=== PATIENT | male | born 1945 | race Two or more races ===

== ENCOUNTER 2019-09-01 15:58 | Inpatient (IN) | payer MEDICARE, MEDICAID ==
[~2019-09-01] VITALS: Ht 175.3 cm; Wt 59.0 kg
[2019-09-01 16:45] VITALS: BP 130/76
[2019-09-01 16:56] LABS: BASOPHILS % (AUTO) 1.2 % (0.0-2.0); EOSINOPHILS % (AUTO) 0.9 % (0.0-3.0); HEMATOCRIT 33.5 % (42.0-52.0); HEMOGLOBIN 11.4 G/DL (14.2-18.0); LYMPHOCYTES % (AUTO) 18.5 % (20.0-45.0); MEAN CORPUSCULAR VOLUME 80 FL (80-99); MONOCYTES % (AUTO) 8.6 % (1.0-10.0); NEUTROPHILS % (AUTO) 70.7 % (45.0-75.0); PLATELET COUNT 351 K/UL (150-450); RED BLOOD COUNT 4.19 M/UL (4.70-6.10); RED CELL DISTRIBUTION WIDTH 11.5 % (11.6-14.8); WHITE BLOOD COUNT 6.5 K/UL (4.8-10.8)
[2019-09-01] MEDS ORDERED: Insulin Human Regular 100units/ml 3ml IV ONE (17:15)
[2019-09-01 17:23] LABS: ALANINE AMINOTRANSFERASE 18 U/L (12-78); ALBUMIN/GLOBULIN RATIO 0.7 (1.0-2.7); ALKALINE PHOSPHATASE 147 U/L (46-116); ANION GAP 9 mmol/L (5-15); ASPARTATE AMINO TRANSFERASE 11 U/L (15-37); BILIRUBIN,TOTAL 0.3 MG/DL (0.2-1.0); BLOOD UREA NITROGEN 13 mg/dL (7-18); CALCIUM 8.7 MG/DL (8.5-10.1); CARBON DIOXIDE 29 MMOL/L (21-32); CHLORIDE 97 MMOL/L (98-107); CKMB 0.9 NG/ML (0.0-3.6); CREATINE KINASE 30 U/L (26-308); POTASSIUM 3.9 MMOL/L (3.5-5.1); SODIUM 135 MMOL/L (136-145)
[2019-09-01] MEDS ORDERED: PLAVIX75 MG ORAL (17:56)
[2019-09-01] MEDS ORDERED: NOVOLIN N100 UNIT/1 SQ (17:56)
[2019-09-01] MEDS ORDERED: COLACE100 MG ORAL (17:56)
[2019-09-01] MEDS ORDERED: FOLIC ACID1 MG ORAL (17:56)
[2019-09-01] MEDS ORDERED: MULTI-VITAMIN1 EACH PO (17:56)
[2019-09-01] MEDS ORDERED: ASPIR 8181 MG ORAL (17:56)
[2019-09-01] MEDS ORDERED: LIPITOR40 MG ORAL (17:56)
[2019-09-01 18:08] LABS: APPEARANCE,URINE CLOUDY; BILIRUBIN, URINE NEGATIVE (NEGATIVE); COLOR,URINE PALE YELLOW; GLUCOSE, URINE (UA) NEGATIVE (NEGATIVE); KETONES,URINE 4+ (NEGATIVE); LEUKOCYTE ESTERASE ,URINE 2+ (NEGATIVE); NITRITE,URINE NEGATIVE (NEGATIVE); PH,URINE 6 (4.5-8.0); PROTEIN,URINE 1+ (NEGATIVE); UROBILINOGEN,URINE NORMAL MG/DL (0.0-1.0)
--- NOTE | 2019-09-01 18:19 | Emergency Room Report ---
History of Present Illness General Chief Complaint: General Complaint Source: Patient Present Illness HPI Patient was brought in by major gifts director with reports of high glucose readings patient himself has some difficulty providing full history The history of present illness is limited secondary to that there was no reports of vomiting or diarrhea Unknown regarding fevers patient himself Upon arrival reports that he is hungry however denies any chest pain denies any neck pain Patient does appear to reside at a boarding care facility There was no reports of any other recent travel or trauma Allergies: Coded Allergies: No Known Allergies (Unverified , 09/01/19) Patient History Limited by: medical condition Past Medical History: see triage record Reviewed Nursing Documentation: PMH: Agreed; PSxH: Agreed Nursing Documentation-PMH Past Medical History: No History, Except For Hx Diabetes: Yes Review of Systems All Other Systems: limited - Other than the ones mentioned in the history of present illness all others are reviewed however they do stay limited due to the patient's mental status Physical Exam Vital Signs Date Time Temp Pulse Resp B/P (MAP) Pulse Ox O2 Delivery O2 Flow Rate FiO2 09/01/19 16:06 98.6 105 16 92/66 (75) 95 09/01/19 16:47 Room Air Sp02 EP Interpretation: reviewed, normal General Appearance: well appearing, no apparent distress Head: normocephalic, atraumatic Eyes: bilateral eye PERRL, bilateral eye EOMI ENT: dry mucus membranes Neck: supple Respiratory: lungs clear, no respiratory distress, no retraction Cardiovascular #1: regular rate, rhythm Gastrointestinal: non tender, soft Musculoskeletal: normal inspection Neurologic: alert, responsive Skin: no rash Lymphatic: no adenopathy Medical Decision Making Diagnostic Impression: Primary Impression: Hyperglycemia Additional Impressions: Dehydration UTI (urinary tract infection) ER Course Given the above history exam and presentation multiple differentials are in consideration Including but not limited to infectious, dehydration, medication reaction Patient has extensive blood work initiated Glucose level is elevated over 500 however there does not appear to be signs of acute acidosis Patient receiving further hydration Urine sample also showing evidence of UTI and antibiotics initiated And requires inpatient care Labs Test 09/01/19 16:25 09/01/19 17:36 White Blood Count 6.5 K/UL (4.8-10.8) Red Blood Count 4.19 M/UL (4.70-6.10) Hemoglobin 11.4 G/DL (14.2-18.0) Hematocrit 33.5 % (42.0-52.0) Mean Corpuscular Volume 80 FL (80-99) Mean Corpuscular Hemoglobin 27.3 PG (27.0-31.0) Mean Corpuscular Hemoglobin Concent 34.1 G/DL (32.0-36.0) Red Cell Distribution Width 11.5 % (11.6-14.8) Platelet Count 351 K/UL (150-450) Mean Platelet Volume 5.4 FL (6.5-10.1) Neutrophils (%) (Auto) 70.7 % (45.0-75.0) Lymphocytes (%) (Auto) 18.5 % (20.0-45.0) Monocytes (%) (Auto) 8.6 % (1.0-10.0) Eosinophils (%) (Auto) 0.9 % (0.0-3.0) Basophils (%) (Auto) 1.2 % (0.0-2.0) Sodium Level 135 MMOL/L (136-145) Potassium Level 3.9 MMOL/L (3.5-5.1) Chloride Level 97 MMOL/L (98-107) Carbon Dioxide Level 29 MMOL/L (21-32) Anion Gap 9 mmol/L (5-15) Blood Urea Nitrogen 13 mg/dL (7-18) Creatinine 1.0 MG/DL (0.55-1.30) Estimat Glomerular Filtration Rate mL/min (>60) Glucose Level 541 MG/DL (74-106) Lactic Acid Level 2.00 mmol/L (0.4-2.0) Calcium Level 8.7 MG/DL (8.5-10.1) Total Bilirubin 0.3 MG/DL (0.2-1.0) Aspartate Amino Transf (AST/SGOT) 11 U/L (15-37) Alanine Aminotransferase (ALT/SGPT) 18 U/L (12-78) Alkaline Phosphatase 147 U/L (46-116) Total Creatine Kinase 30 U/L (26-308) Creatine Kinase MB 0.9 NG/ML (0.0-3.6) Creatine Kinase MB Relative Index 3.0 Troponin I 0.009 ng/mL (0.000-0.056) Pro-B-Type Natriuretic Peptide 339 pg/mL (0-125) Total Protein 7.3 G/DL (6.4-8.2) Albumin 3.0 G/DL (3.4-5.0) Globulin 4.3 g/dL Albumin/Globulin Ratio 0.7 (1.0-2.7) Lipase 88 U/L (73-393) Urine Color Pale yellow Urine Appearance Cloudy Urine pH 6 (4.5-8.0) Urine Specific [place] 1.015 (1.005-1.035) Urine Protein 1+ (NEGATIVE) Urine Glucose (UA) Negative (NEGATIVE) Urine Ketones 4+ (NEGATIVE) Urine Blood 5+ (NEGATIVE) Urine Nitrite Negative (NEGATIVE) Urine Bilirubin Negative (NEGATIVE) Urine Urobilinogen Normal MG/DL (0.0-1.0) Urine Leukocyte Esterase 2+ (NEGATIVE) Urine RBC 20-30 /HPF (0 - 0) Urine WBC Tntc /HPF (0 - 0) Urine Squamous Epithelial Cells Occasional /LPF Urine Bacteria Many /HPF (NONE) EKG Diagnostic Results Rate: normal Rhythm: NSR ST Segments: no acute changes Rhythm Strip Diag. Results EP Interpretation: yes Rate: 80 Rhythm: NSR, no PVC's, no ectopy Chest X-Ray Diagnostic Results Chest X-Ray Diagnostic Results : Chest X-Ray Ordered: Yes # of Views/Limited/Complete: 1 View Indication: Chest Pain EP Interpretation: Yes Interpretation: no consolidation, no effusion, no pneumothorax Impression: No acute disease Electronically Signed by: Jennifer Rico DO Last Vital Signs Date Time Temp Pulse Resp B/P (MAP) Pulse Ox O2 Delivery O2 Flow Rate FiO2 09/01/19 16:47 86 21 Room Air 09/01/19 16:45 98.6 130/76 100 Status: improved Disposition: ADMITTED INPATIENT Condition: Serious Referrals: NOT CHOSEN IPA/,REFERRING (PCP) Jennifer Rico DO Sep 01, 2019 18:19
[2019-09-01] MEDS ORDERED: cefTRIAXone 1 GM in D5W 55 ML IVPB ONE (18:30)
[2019-09-01 19:10] VITALS: BP 128/75
[2019-09-01 20:00] VITALS: BP 144/81
[2019-09-01 20:15] VITALS: BP 131/77
[2019-09-01] MEDS: Atorvastatin 80mg tab ORAL SCH (21:38)
[2019-09-01] MEDS: Enoxaparin 40mg Inj SUBQ SCH (21:38)
[2019-09-01] MEDS: Levemir Flexpen SUBQ SCH (21:39)
[2019-09-01] MEDS: NovoLOG Insulin Flexpen SUBQ SCH (21:40)
--- NOTE | 2019-09-01 22:00 | History and Physical Report ---
DATE OF ADMISSION: 09/01/2019 REASON FOR ADMISSION: 1. Hyperglycemia. 2. UTI. HISTORY OF PRESENT ILLNESS: The patient is a Armenian-speaking 74-year-old gentleman who was brought in by bioinformatics technician due to difficult to control high glucose readings. Noted to have an underlying urinary tract infection. The patient denies any current chest pain, nausea, vomiting, or diarrhea. No shortness of breath. He resides at a boarding care facility. No other recent history of falls or trauma to note. PAST MEDICAL HISTORY: 1. Diabetes mellitus. 2. Hyperlipidemia. 3. Coronary artery disease. PAST SURGICAL HISTORY: Noncontributory. ALLERGIES: No known drug allergies. FAMILY HISTORY: Positive for diabetes. REVIEW OF SYSTEMS: NEUROLOGIC: The patient denies headache, change in vision, syncope, or presyncopal episodes. CARDIOVASCULAR: No current chest pain, palpitations, or angina. PULMONARY: No difficulty breathing, productive cough, or sputum. GASTROINTESTINAL/GENITOURINARY: No change in urinary or bowel habits. No nausea, vomiting, or diarrhea. ENDOCRINE: No night sweats, fevers, or chills. MUSCULOSKELETAL: The patient is feeling tired, weak, and fatigued. PHYSICAL EXAMINATION: VITAL SIGNS: Blood pressure 131/77, respiratory rate 19, pulse 80, and temperature 98.9. 100% oxygen saturation on room air. GENERAL: The patient is awake and alert, not in distress. HEENT: Extraocular muscles intact. No lymphadenopathy noted. CARDIOVASCULAR: S1, S2. No rubs or gallops. PULMONARY: Clear to auscultation bilaterally. No rales, rhonchi or wheezes. ABDOMEN: Nondistended and nontender. EXTREMITIES: No edema noted. LABORATORY DATA: Labs dated September 01, 2019, [id number]-[id number]-count rbc's and bacteria. Sodium 135, potassium 3.9, glucose 541, creatinine 1. Hemoglobin 11.4, white cell count 6.5, and platelet count 351,000. ASSESSMENT AND PLAN: 1. Urinary tract infection. At this time, we will continue Rocephin. 2. Hyperglycemia, diabetes out of control. We will re-initiate Levemir along with insulin sliding scale and Accu-Cheks with a low-carbohydrate diet. 3. Dehydration. We will continue aggressive hydration. 4. Hyperlipidemia. The patient is on Lipitor. 5. DVT prophylaxis with Lovenox. 6. GI prophylaxis with famotidine. Walt Laws MD DR: PROSPER JOB#: [id number] CC:
[2019-09-02] VITALS: BP 121/66
[2019-09-02 04:00] VITALS: BP 103/63
[2019-09-02] MEDS: NovoLOG Insulin Flexpen SUBQ SCH ×4 (05:49→21:00)
[2019-09-02 07:14] LABS: BASOPHILS % (AUTO) 1.4 % (0.0-2.0); EOSINOPHILS % (AUTO) 1.6 % (0.0-3.0); HEMATOCRIT 31.1 % (42.0-52.0); HEMOGLOBIN 10.7 G/DL (14.2-18.0); MEAN CORPUSCULAR VOLUME 79 FL (80-99); MONOCYTES % (AUTO) 11.2 % (1.0-10.0); NEUTROPHILS % (AUTO) 60.8 % (45.0-75.0); PLATELET COUNT 353 K/UL (150-450); RED BLOOD COUNT 3.95 M/UL (4.70-6.10); RED CELL DISTRIBUTION WIDTH 11.2 % (11.6-14.8)
[2019-09-02 07:33] LABS: ANION GAP 8 mmol/L (5-15); BLOOD UREA NITROGEN 15 mg/dL (7-18); CALCIUM 8.3 MG/DL (8.5-10.1); CARBON DIOXIDE 29 MMOL/L (21-32); CHLORIDE 105 MMOL/L (98-107); CREATININE 0.8 MG/DL (0.55-1.30); POTASSIUM 3.4 MMOL/L (3.5-5.1); SODIUM 141 MMOL/L (136-145)
[2019-09-02 08:00] VITALS: BP 122/66
[2019-09-02] MEDS: Aspirin EC 81mg tab ORAL SCH (09:25)
--- NOTE | 2019-09-02 09:55 | Nephrology Progress Note ---
Assessment/Plan Assessment/Plan: A/P 1) Hyperglycemia- resolved - treat UTI - continue insulin and accuchecks 2) UTI- rocephin 3) LLE toe wounds - per wound care and gen surgery 4) Dehydration- continue IVFs 5) DVT prophylaxsis with lovenox Disposition- PT eval andf HH ordered - anticipate DC by Subjective Date patient seen: Sep 02, 2019 Time patient seen: 09:53 ROS Limited/Unobtainable: No Allergies: Coded Allergies: No Known Allergies (Unverified , 09/01/19) Subjective Patient feeling better. In no overt distress Objective Last 24 Hour Vital Signs Date Time Temp Pulse Resp B/P (MAP) Pulse Ox O2 Delivery O2 Flow Rate FiO2 09/02/19 09:30 Room Air 09/02/19 08:00 98.8 90 18 122/66 (84) 100 09/02/19 04:00 98.1 87 18 103/63 (76) 98 09/02/19 00:48 Room Air 09/02/19 00:00 97.9 92 18 121/66 (84) 96 09/01/19 20:15 98.9 80 19 131/77 100 Room Air 09/01/19 20:15 98.9 80 19 131/77 100 Room Air 09/01/19 20:00 97.5 83 18 144/81 (102) 98 09/01/19 19:10 98.7 81 15 128/75 99 Room Air 09/01/19 16:47 86 21 Room Air 09/01/19 16:45 98.6 86 21 130/76 100 09/01/19 16:06 98.6 105 16 92/66 (75) 95 Intake and Output 09/01/19 09/02/19 19:00 07:00 Intake Total 800 ml Output Total 300 ml Balance 500 ml Intake IV Total 800 ml Output Urine Total 300 ml Laboratory Tests 09/01/19 16:25: White Blood Count 6.5, Red Blood Count 4.19L, Hemoglobin 11.4L, Hematocrit 33.5L , Mean Corpuscular Volume 80, Mean Corpuscular Hemoglobin 27.3, Mean Corpuscular Hemoglobin Concent 34.1, Red Cell Distribution Width 11.5L, Platelet Count 351, Mean Platelet Volume 5.4L, Neutrophils (%) (Auto) 70.7, Lymphocytes (%) (Auto) 18.5L, Monocytes (%) (Auto) 8.6, Eosinophils (%) (Auto) 0.9, Basophils (%) (Auto) 1.2, Sodium Level 135L, Potassium Level 3.9, Chloride Level 97L, Carbon Dioxide Level 29, Anion Gap 9, Blood Urea Nitrogen 13, Creatinine 1.0, Estimat Glomerular Filtration Rate , Glucose Level 541*H, Lactic Acid Level 2.00, Calcium Level 8.7, Total Bilirubin 0.3, Aspartate Amino Transf (AST/SGOT) 11L, Alanine Aminotransferase (ALT/SGPT) 18, Alkaline Phosphatase 147H, Total Creatine Kinase 30, Creatine Kinase MB 0.9, Creatine Kinase MB Relative Index 3.0, Troponin I 0.009, Pro-B-Type Natriuretic Peptide 339H, Total Protein 7.3, Albumin 3.0L, Globulin 4.3, Albumin/Globulin Ratio 0.7L , Lipase 88 09/01/19 17:36: Urine Color Pale yellow, Urine Appearance Cloudy, Urine pH 6, Urine Specific [place] 1.015, Urine Protein 1+H, Urine Glucose (UA) Negative, Urine Ketones 4+H , Urine Blood 5+H, Urine Nitrite Negative, Urine Bilirubin Negative, Urine Urobilinogen Normal, Urine Leukocyte Esterase 2+H, Urine RBC 20-30H, Urine WBC TntcH, Urine Squamous Epithelial Cells Occasional, Urine Bacteria ManyH 09/02/19 05:30: White Blood Count 6.0, Red Blood Count 3.95L, Hemoglobin 10.7L, Hematocrit 31.1L , Mean Corpuscular Volume 79L, Mean Corpuscular Hemoglobin 27.1, Mean Corpuscular Hemoglobin Concent 34.4, Red Cell Distribution Width 11.2L, Platelet Count 353, Mean Platelet Volume 5.4L, Neutrophils (%) (Auto) 60.8, Lymphocytes (%) (Auto) 25.0, Monocytes (%) (Auto) 11.2H, Eosinophils (%) (Auto) 1.6, Basophils (%) (Auto) 1.4, Sodium Level 141, Potassium Level 3.4L, Chloride Level 105, Carbon Dioxide Level 29, Anion Gap 8, Blood Urea Nitrogen 15, Creatinine 0.8, Estimat Glomerular Filtration Rate , Glucose Level 100#, Calcium Level 8.3L Height (Feet): 5 Height (Inches): 9.00 Weight (Pounds): 130 General Appearance: no apparent distress, alert EENT: normal ENT inspection Neck: normal alignment, supple Cardiovascular: normal rate, regular rhythm Respiratory/Chest: lungs clear, normal breath sounds Abdomen: non tender, soft Edema: no edema noted Arm (L), no edema noted Arm (R), no edema noted Leg (L), no edema noted Leg (R), no edema noted Pedal (L), no edema noted Pedal (R), no edema noted Generalized Walt Laws MD Sep 02, 2019 09:55
--- NOTE | 2019-09-02 11:47 | Diagnostic Imaging Report ---
Indication: Chest pain Technique: One view of the chest Comparison: none Findings: The lungs pleural spaces are clear. The heart size is normal. The aorta is calcified Impression: No acute process
[2019-09-02 12:00] VITALS: BP 146/78
--- NOTE | 2019-09-02 12:35 | Cardiology Report ---
APPROVED REPORT EKG Measurement Heart [id number] Normal sinus rhythm Low voltage QRS Borderline ECG
--- NOTE | 2019-09-02 12:37 | Consultation ---
History of Present Illness General Date patient seen: Sep 02, 2019 Reason for Hospitalization: General Complaint Present Illness HPI 74M with long standing history of DM with prior bilateral ray amputation(s) presented with abnormal labs, non compliance, hyperglycemia, infected left foot. Surgery called to evaluate and assist with care. patient seen, chart reviewed, patient examined. no n/v/f/c. labs reviewed, images noted. patient responsive but refusing insulin and meds stating they may be causing gangrene of feet. poor historian. hx obtained from EMR and PCP Allergies: Coded Allergies: No Known Allergies (Unverified , 09/01/19) Medication History Scheduled Aspirin* (Aspir 81*), 81 MG ORAL DAILY, (Reported) Atorvastatin Calcium* (Lipitor*), 40 MG ORAL BEDTIME, (Reported) Clopidogrel Bisulfate* (Plavix*), 75 MG ORAL DAILY, (Reported) Docusate Sodium* (Colace*), 100 MG ORAL DAILY, (Reported) Folic Acid* (Folic Acid*), 1 MG ORAL DAILY, (Reported) Nph, Human Insulin Isophane* (Novolin N*), 0 SQ BEFORE MEALS AND HS, (Reported) Miscellaneous Medications Multivitamin (Multi-Vitamin Daily), 1 EACH PO, (Reported) Patient History Limited by: medical condition, other History Provided By: Patient, Medical Record, Caregiver, PMD Healthcare decision maker Resuscitation status Full Code Advanced Directive on File No Past Medical/Surgical History Past Medical/Surgical History: (1) Cellulitis of left foot (2) Gangrene of toe of left foot (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 (4) Hyperglycemia (5) UTI (urinary tract infection) (6) Dehydration (7) Wound abscess Review of Systems Review of Symptoms General ROS: no weight loss or fever Psychological ROS: no depression or mood changes, no memory loss Ophthalmic ROS: no visual changes or eye irritation ENT ROS: no nasal congestion, hearing loss, dizziness Allergy and Immunology ROS: no allergic symptoms or urticaria Hematological and Lymphatic ROS: no swollen glands, unusual bleeding or bruising Endocrine ROS: no polyuria, polydipsia, weight changes, temperature intolerance Respiratory ROS: no cough, shortness of breath, or wheezing Cardiovascular ROS: no chest pain or dyspnea on exertion Gastrointestinal ROS: denies abdominal pain, bright red blood in stool. Musculoskeletal ROS: no myalgias or arthralgias Neurological ROS: no TIA or stroke symptoms Dermatological ROS: no new or changing skin lesions, rashes or pruritis Physical Exam Physical Exam General appearance: alert, cooperative, no distress, appears stated age Head: Normocephalic, without obvious abnormality, atraumatic Eyes: conjunctivae/corneas clear. PERRL, EOM's intact. Fundi benign Throat: Lips, mucosa, and tongue normal. Teeth and gums normal Neck: supple, symmetrical, trachea midline, no adenopathy, thyroid: not enlarged, symmetric, no tenderness/mass/nodules, no carotid bruit and no JVD Lungs: clear to auscultation bilaterally Heart: regular rate and rhythm, S1, S2 normal, no murmur, click, rub or gallop Abdomen: soft, non-tender. Bowel sounds normal. No masses, no organomegaly Extremities: extremities with prior amputation. left 2/3rd ray with necrosis and infection Pulses: 2+ and symmetric Skin: Skin color, texture, turgor normal. No rashes or lesions Neurologic: Grossly normal Last 24 Hour Vital Signs Date Time Temp Pulse Resp B/P (MAP) Pulse Ox O2 Delivery O2 Flow Rate FiO2 09/02/19 09:30 Room Air 09/02/19 08:00 98.8 90 18 122/66 (84) 100 09/02/19 04:00 98.1 87 18 103/63 (76) 98 09/02/19 00:48 Room Air 09/02/19 00:00 97.9 92 18 121/66 (84) 96 09/01/19 20:15 98.9 80 19 131/77 100 Room Air 09/01/19 20:15 98.9 80 19 131/77 100 Room Air 09/01/19 20:00 97.5 83 18 144/81 (102) 98 09/01/19 19:10 98.7 81 15 128/75 99 Room Air 09/01/19 16:47 86 21 Room Air 09/01/19 16:45 98.6 86 21 130/76 100 09/01/19 16:06 98.6 105 16 92/66 (75) 95 Intake and Output 09/01/19 09/02/19 19:00 07:00 Intake Total 800 ml Output Total 300 ml Balance 500 ml Intake IV Total 800 ml Output Urine Total 300 ml Laboratory Tests Test 09/01/19 16:25 09/01/19 17:36 09/02/19 05:30 White Blood Count 6.5 K/UL (4.8-10.8) 6.0 K/UL (4.8-10.8) Red Blood Count 4.19 M/UL (4.70-6.10) L 3.95 M/UL (4.70-6.10) L Hemoglobin 11.4 G/DL (14.2-18.0) L 10.7 G/DL (14.2-18.0) L Hematocrit 33.5 % (42.0-52.0) L 31.1 % (42.0-52.0) L Mean Corpuscular Volume 80 FL (80-99) 79 FL (80-99) L Mean Corpuscular Hemoglobin 27.3 PG (27.0-31.0) 27.1 PG (27.0-31.0) Mean Corpuscular Hemoglobin Concent 34.1 G/DL (32.0-36.0) 34.4 G/DL (32.0-36.0) Red Cell Distribution Width 11.5 % (11.6-14.8) L 11.2 % (11.6-14.8) L Platelet Count 351 K/UL (150-450) 353 K/UL (150-450) Mean Platelet Volume 5.4 FL (6.5-10.1) L 5.4 FL (6.5-10.1) L Neutrophils (%) (Auto) 70.7 % (45.0-75.0) 60.8 % (45.0-75.0) Lymphocytes (%) (Auto) 18.5 % (20.0-45.0) L 25.0 % (20.0-45.0) Monocytes (%) (Auto) 8.6 % (1.0-10.0) 11.2 % (1.0-10.0) H Eosinophils (%) (Auto) 0.9 % (0.0-3.0) 1.6 % (0.0-3.0) Basophils (%) (Auto) 1.2 % (0.0-2.0) 1.4 % (0.0-2.0) Sodium Level 135 MMOL/L (136-145) L 141 MMOL/L (136-145) Potassium Level 3.9 MMOL/L (3.5-5.1) 3.4 MMOL/L (3.5-5.1) L Chloride Level 97 MMOL/L (98-107) L 105 MMOL/L (98-107) Carbon Dioxide Level 29 MMOL/L (21-32) 29 MMOL/L (21-32) Anion Gap 9 mmol/L (5-15) 8 mmol/L (5-15) Blood Urea Nitrogen 13 mg/dL (7-18) 15 mg/dL (7-18) Creatinine 1.0 MG/DL (0.55-1.30) 0.8 MG/DL (0.55-1.30) Estimat Glomerular Filtration Rate mL/min (>60) mL/min (>60) Glucose Level 541 MG/DL (74-106) *H 100 MG/DL (74-106) # Lactic Acid Level 2.00 mmol/L (0.4-2.0) Calcium Level 8.7 MG/DL (8.5-10.1) 8.3 MG/DL (8.5-10.1) L Total Bilirubin 0.3 MG/DL (0.2-1.0) Aspartate Amino Transf (AST/SGOT) 11 U/L (15-37) L Alanine Aminotransferase (ALT/SGPT) 18 U/L (12-78) Alkaline Phosphatase 147 U/L (46-116) H Total Creatine Kinase 30 U/L (26-308) Creatine Kinase MB 0.9 NG/ML (0.0-3.6) Creatine Kinase MB Relative Index 3.0 Troponin I 0.009 ng/mL (0.000-0.056) Pro-B-Type Natriuretic Peptide 339 pg/mL (0-125) H Total Protein 7.3 G/DL (6.4-8.2) Albumin 3.0 G/DL (3.4-5.0) L Globulin 4.3 g/dL Albumin/Globulin Ratio 0.7 (1.0-2.7) L Lipase 88 U/L (73-393) Urine Color Pale yellow Urine Appearance Cloudy Urine pH 6 (4.5-8.0) Urine Specific [place] 1.015 (1.005-1.035) Urine Protein 1+ (NEGATIVE) H Urine Glucose (UA) Negative (NEGATIVE) Urine Ketones 4+ (NEGATIVE) H Urine Blood 5+ (NEGATIVE) H Urine Nitrite Negative (NEGATIVE) Urine Bilirubin Negative (NEGATIVE) Urine Urobilinogen Normal MG/DL (0.0-1.0) Urine Leukocyte Esterase 2+ (NEGATIVE) H Urine RBC 20-30 /HPF (0 - 0) H Urine WBC Tntc /HPF (0 - 0) H Urine Squamous Epithelial Cells Occasional /LPF Urine Bacteria Many /HPF (NONE) H Microbiology Date/Time Source Procedure Growth Status 09/01/19 16:35 Blood Blood Culture - Preliminary Resulted 09/01/19 17:36 Urine,Clean Catch Urine Culture - Preliminary Resulted 09/01/19 17:45 Rectum Received Height (Feet): 5 Height (Inches): 9.00 Weight (Pounds): 130 Medications Current Medications Medications (Trade) Dose Ordered Sig/Indigo Route PRN Reason Start Time Stop Time Status Last Admin Dose Admin Acetaminophen (Tylenol) 650 mg Q4H PRN ORAL Mild Pain (Pain Scale 1-3) 09/01/19 17:45 10/01/19 17:44 Aspirin (Ecotrin) 81 mg DAILY ORAL 09/02/19 09:00 10/02/19 08:59 09/02/19 09:25 Atorvastatin Calcium (Lipitor) 40 mg BEDTIME ORAL 09/01/19 21:00 10/01/19 20:59 09/01/19 21:38 Ceftriaxone Sodium 1 gm/ Dextrose 55 ml @ 110 mls/hr Q24H IVPB 09/02/19 18:30 09/09/19 18:29 Clopidogrel Bisulfate (Plavix) 75 mg DAILY ORAL 09/02/19 09:00 10/02/19 08:59 09/02/19 09:26 Dextrose (Dextrose 50%) 25 ml Q30M PRN IV Hypoglycemia 09/01/19 18:00 10/01/19 17:59 Dextrose (Dextrose 50%) 50 ml Q30M PRN IV Hypoglycemia 09/01/19 18:00 10/01/19 17:59 Enoxaparin Sodium (Lovenox) 40 mg Q24H SUBQ 09/01/19 20:00 10/01/19 19:59 09/01/19 21:38 Famotidine (Pepcid) 40 mg DAILY ORAL 09/02/19 09:00 10/02/19 08:59 09/02/19 09:26 Insulin Aspart (NovoLOG) BEFORE MEALS AND HS SUBQ 09/01/19 21:00 10/01/19 20:59 09/01/19 21:40 Insulin Detemir (Levemir) 12 units Q24H SUBQ 09/01/19 21:00 10/01/19 20:59 09/01/19 21:39 Metformin HCl (Glucophage) 850 mg TIAC ORAL 09/02/19 06:30 10/02/19 06:29 09/02/19 05:52 Ondansetron HCl (Zofran) 4 mg Q6H PRN IVP Nausea & Vomiting 09/01/19 17:45 10/01/19 17:44 Sodium Chloride 1,000 ml @ 100 mls/hr Q10H IV 09/01/19 18:00 10/01/19 17:59 09/02/19 04:00 Assessment/Plan Problem List: (1) Wound abscess SNOMED: 446109985 (2) Cellulitis of left foot Assessment & Plan: 74M hx DM non compliance prior ray amputations now with left 2nd and 3rd ray infection gangrene, exposed bone labs noted on ABX good DP pulse b/l Podiatry eval as may need amputation local wound care Abx as per ID will follow with recs. 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
--- NOTE | 2019-09-02 13:27 | Consultation ---
Consult Note Assessment/Plan A/ 1) Cellulitis left 2nd toe 2) Gangrene left 2nd toe 3) DM foot ulcer 4) DM with neuropathy 5) Uncontrolled DM 6) Noncompliant 7) Healed toe amps left hallux and right 1st and 2nd toes P/ 1) Nursing states that patient has been noncompliant with medications 2) Discussed with patient in portuguese the necessity for amputation and possible spread of infection imposing further risk to limb. Patient states that the toe feels fine and he is not sure if he wants amputation. 3) Wound care orders placed 4) Consent ordered placed. If patient is amenable, will proceed with toe amputation 5) Will follow Thank you. Dc Manzo DPM Sep 02, 2019 13:26
[2019-09-02] MEDS ORDERED: Vancomycin 1.25gm/NS Premix 275 ML IVPB SCH (14:45)
--- NOTE | 2019-09-02 14:46 | Diagnostic Imaging Report ---
Indication: Left foot pain Technique: 3 views left foot Comparison: none Findings: The patient is status post first toe amputation at the level of the midshaft proximal phalanx. There is marked soft tissue swelling of the second digit. There is evidence of soft tissue erosion of the distal second digit. The underlying bone of the distal phalanx is difficult to assess but erosion is not completely excludable. There is rarefaction of the fourth and fifth distal phalanges, not well-demonstrated no acute fractures. No dislocations. There is hammertoe deformity of the second through fifth digits. On the oblique view, there is evidence of a minimally displaced distal fibular fracture. Impression: Suspect distal fibular fracture, acuity indeterminate. Recommend dedicated ankle radiograph Soft tissue swelling of the second digit with evidence of distal soft tissue erosion. Distal aspects of the second, fourth, and fifth distal phalanges not well-demonstrated. Recommend MRI for better characterization if there is clinical suspicion of osteomyelitis.
--- NOTE | 2019-09-02 14:55 | Consultation ---
Consult Note Consult Note HPI: 74yo gentleman with PMH below brought in by quill skinner for hyperglycemia. Pt states that he felt fine and they brought him to the hospital because his blood pressure and sugar were high. Denies fever, chills, sweats, cough, sob, chest pain, sob, abdominal pain, dysuria, hematuria, diarrhea. He does report pain "a little" and "sometimes" in his feet. Per nurse, pt is refusing potassium and insulin. Pt states that he likes having his sugars high because he feels better. ROS: All ten point ROS negative except for what is above. PMH: Dyslipidemia DM LLE wound Meds: reviewed NKDA SHx: board and care FHx: DM VS: reviewed Gen: NAD HEENT: anicteric sclera CV: RRR. no murmurs Resp: RRR. Soft. no TTP. no suprapubic pain Back: no flank pain Neuro: Alert. Interactive. Appropriate Psych: nonlabile. Ext: b/l feet was just wrapped Labs: reviewed Assessment: Afebrile No leukocytosis Hyperglycemia possibly 2/2 infection Likely UTI does not appear to have come in with fontenot per charting UA WBC TNTC UCx: P L 2nd toe cellulitis/gangrene possible amputation Bacteremia? contaminant? possibly real given foot wound 09/01 BCx: GPC cluster Unlikely PNA CXR negative Plan: continue Ceftriaxone and vancomycin #2 Add flagyl 500mg PO q8H CRP ESR f/u GPC from blood f/u UCx f/u MRSA screen repeat bcx Thank you for this consult. [facility] will continue to follow the patient with you. Erick Chirinos MD Sep 02, 2019 14:55
[2019-09-02 16:00] VITALS: BP 130/80
--- NOTE | 2019-09-02 16:30 | Consultation ---
DATE OF CONSULTATION: 09/02/2019 CONSULTING PHYSICIAN: Dc Manzo D.P.M. REQUESTING PHYSICIAN: REASON FOR CONSULTATION: Infected left second toe gangrenous and presence of diabetes mellitus. HISTORY OF PRESENT ILLNESS: The patient is a 74-year-old male who was admitted to [facility] yesterday for hyperglycemia and left foot infection. The patient states that he is unaware how long he has had the issue with the left second toe. He states that he feels no abnormality in the foot and has no pedal complaints. PAST MEDICAL HISTORY: Significant for diabetes mellitus, hyperlipidemia, and coronary artery disease. PAST SURGICAL HISTORY: Unknown. ALLERGIES: No known drug allergies. MEDICATIONS: Per MAR and include ceftriaxone, Plavix, Ecotrin, Lovenox. SOCIAL HISTORY: Noncontributory. FAMILY HISTORY: Noncontributory. REVIEW OF SYSTEMS: The patient was uncooperative with review of systems. PHYSICAL EXAMINATION: VITAL SIGNS: Temperature is 98.8, pulse 90, respirations 18, blood pressure 122/66, saturating 100% on room air. LOWER EXTREMITY PHYSICAL EXAMINATION: Vascular, palpable pedal pulses noted bilaterally. Feet are equally warm. There is no edema or cyanosis noted in the feet. There is edema noted in the left second toe. DERMATOLOGICAL: There is necrosis noted on the distal aspect of the left second toe with necrosis exposing full-thickness wound underneath with bone exposed. No malodor is noted. Mild serous drainage noted from the site. Periwound erythema is noted. No pain upon palpation of the area. He has healed amputation of the left first toe and healed amputations of the right first and second toes. No other wounds are noted. NEUROLOGICAL: Protective threshold is absent. MUSCULOSKELETAL: Toe amputations noted above. The patient is ambulatory. No other gross deformities are noted. LABORATORY DATA: White blood cell count is 6.0, hemoglobin and hematocrit is 10.7 and 31.1, and platelet count is 353. Sodium is 141, potassium is , BUN 15 and creatinine 0.8. Albumin is 3.0. Lactic acid is 2.0. Admission glucose is 541, currently is 100. No lower extremity imaging is noted. ASSESSMENT: 1. Cellulitis, left second toe. 2. Gangrene, left second toe. 3. Diabetic foot ulcer. 4. Diabetes mellitus, type 2 with neuropathy. 5. Uncontrolled diabetes mellitus. 6. Noncompliance. 7. Heel toe amputations bilateral feet. PLAN: 1. Nurses state that the patient has been noncompliant with medications. 2. Discussed with the patient in [place] the necessity for amputation and possible foot infection and causing further risk to the limb. The patient states that it still still feels fine. He is not sure if he wants amputation. 3. Wound care orders were placed. 4. Consent order placed. If the patient is amenable to surgery, we will proceed with amputation. 5. Further imaging is pending including foot x-rays. 6. We will follow. Thank you for the courtesy of this consultation. Dc Manzo D.P.M. DR: Tommy JOB#: [id number] CC:
[2019-09-02] MEDS: Vancomycin 1gm in D5W 275ml IVPB SCH (17:21)
[2019-09-02] MEDS ORDERED: cefTRIAXone 1 GM in D5W 55 ML IVPB SCH (18:30)
[2019-09-02] MEDS: Enoxaparin 40mg Inj SUBQ SCH (19:59)
[2019-09-02 20:00] VITALS: BP 128/62
[2019-09-02] MEDS: Levemir Flexpen SUBQ SCH (21:00)
[2019-09-02] MEDS: Atorvastatin 80mg tab ORAL SCH (21:03)
[2019-09-02] MEDS: metroNIDAZOLE 500mg tab ORAL SCH (21:04)
--- NOTE | 2019-09-02 22:01 | History and Physical Report ---
DATE OF ADMISSION: 09/01/2019 DATE AND TIME SEEN: 09/02/2019 at 2 p.m. CONSULTANTS: Walt Laws M.D. CHIEF COMPLAINT: Hyperglycemia, dehydration. BRIEF HISTORY: This is a 74-year-old male, who presents from [facility], came to [place] last night with fever, dehydration, confusion, weakness, hyperglycemia. The patient slightly confused, currently in bed, not talking much. REVIEW OF SYSTEMS: Unavailable. PAST MEDICAL HISTORY: Includes dehydration, hyperglycemia, wound abscess, cellulitis left foot, ulcer of the toe, gangrene toes of left foot. PAST SURGICAL HISTORY: Unknown. MEDICATIONS: Include ceftriaxone, potassium, famotidine, clopidogrel, metformin, enoxaparin, Tylenol. ALLERGIES: Denies. SOCIAL HISTORY: Unable to obtain secondary to the patient's confusion. PHYSICAL EXAMINATION: GENERAL: Confused in bed, disoriented x3, in no acute distress. VITAL SIGNS: Temperature 97, pulse 84, respiratory rate 18, blood pressure 146/78. CARDIOVASCULAR: No murmurs. LUNGS: Poor air exchange. ABDOMEN: Bowel sounds distant. EXTREMITIES: No cyanosis, clubbing, or edema. NEUROLOGIC: The patient moves all extremities, slightly weak. LABORATORY AND DIAGNOSTIC DATA: Labs at this time show hemoglobin and hematocrit 10/31, otherwise CBC is normal. BMP shows potassium 3.4, initial sugar was 541, now it is 100. Troponin 0.009. Albumin 3.0. Urinalysis shows 2+ leukocyte esterase. PLAN: 1. . 2. Hyperglycemia. 3. Diabetes. 4. Sepsis. 5. Dehydration. 6. Confusion. 7. Weakness. 8. Anemia. 9. Malnutrition. 10. Cellulitis left foot and gangrene. PLAN: 1. PT, dietary evaluation, wound care. 2. CBC and BMP in the morning. 3. Antibiotics per Infectious Diseases. 4. Pain control. 5. Dietary followup. 6. Blood pressure and blood sugar control. Greg Maurer D.O. DR: El JOB#: [id number] CC:
[2019-09-03] VITALS (13 sets, daily range): BP systolic 100–139; BP diastolic 56–83
[2019-09-03] MEDS: Vancomycin 1gm in D5W 275ml IVPB SCH (03:56)
[2019-09-03] MEDS: metroNIDAZOLE 500mg tab ORAL SCH ×3 (05:34→21:15)
[2019-09-03] MEDS: NovoLOG Insulin Flexpen SUBQ SCH ×4 (05:35→21:17)
[2019-09-03 08:10] LABS: HEMATOCRIT 32.2 % (42.0-52.0); LYMPHOCYTES % (AUTO) 23.6 % (20.0-45.0); MEAN CORPUSCULAR VOLUME 80 FL (80-99); MONOCYTES % (AUTO) 7.7 % (1.0-10.0); NEUTROPHILS % (AUTO) 66.7 % (45.0-75.0); PLATELET COUNT 399 K/UL (150-450); RED BLOOD COUNT 4.01 M/UL (4.70-6.10); RED CELL DISTRIBUTION WIDTH 12.9 % (11.6-14.8); WHITE BLOOD COUNT 6.8 K/UL (4.8-10.8)
[2019-09-03 08:21] LABS: ANION GAP 4 mmol/L (5-15); BLOOD UREA NITROGEN 10 mg/dL (7-18); CALCIUM 8.2 MG/DL (8.5-10.1); CARBON DIOXIDE 32 MMOL/L (21-32); CHLORIDE 100 MMOL/L (98-107); CREATININE 0.7 MG/DL (0.55-1.30); POTASSIUM 3.5 MMOL/L (3.5-5.1); SODIUM 135 MMOL/L (136-145)
[2019-09-03] MEDS: Aspirin EC 81mg tab ORAL SCH (08:30)
--- NOTE | 2019-09-03 08:48 | Nephrology Progress Note ---
Assessment/Plan Assessment/Plan: A/P 1) Hyperglycemia- resolved - continue insulin and accuchecks 2) UTI/bacteremia- defer Abx to ID 3) LLE toe wounds - per wound care and gen surgery - Abx and toe 4) Dehydration- resolved. DC IVFs 5) DVT prophylaxsis with lovenox Disposition- DC back to board and care post amputation and treatment of UTI/ bacteremia Subjective Date patient seen: Sep 03, 2019 Time patient seen: 08:44 ROS Limited/Unobtainable: Yes Allergies: Coded Allergies: No Known Allergies (Unverified , 09/01/19) Subjective Patient feeling better. Resting comfortably Objective Last 24 Hour Vital Signs Date Time Temp Pulse Resp B/P (MAP) Pulse Ox O2 Delivery O2 Flow Rate FiO2 09/03/19 04:00 98.8 88 18 126/74 (91) 97 09/03/19 00:16 98.6 86 18 130/76 (94) 98 09/02/19 20:00 98.6 89 16 128/62 (84) 98 09/02/19 16:00 97.8 86 18 130/80 (97) 99 09/02/19 12:00 97.5 84 18 146/78 (100) 100 09/02/19 09:30 Room Air 09/02/19 09:00 Room Air Intake and Output 09/02/19 09/03/19 19:00 07:00 Intake Total 1975.000 ml 1230.000 ml Balance 1975.000 ml 1230.000 ml Intake Oral 1000 ml 0 ml IV Total 975.000 ml 1230.000 ml # Voids 8 4 # Bowel Movements 2 Laboratory Tests 09/03/19 07:55: White Blood Count 6.8, Red Blood Count 4.01L, Hemoglobin 11.0L, Hematocrit 32.2L , Mean Corpuscular Volume 80, Mean Corpuscular Hemoglobin 27.4, Mean Corpuscular Hemoglobin Concent 34.0, Red Cell Distribution Width 12.9, Platelet Count 399, Mean Platelet Volume 5.3L, Neutrophils (%) (Auto) 66.7, Lymphocytes ( %) (Auto) 23.6, Monocytes (%) (Auto) 7.7, Eosinophils (%) (Auto) 1.0, Basophils (%) (Auto) 1.0, Sodium Level 135L, Potassium Level 3.5, Chloride Level 100, Carbon Dioxide Level 32, Anion Gap 4L, Blood Urea Nitrogen 10, Creatinine 0.7, Estimat Glomerular Filtration Rate , Glucose Level 292#H, Calcium Level 8.2L Height (Feet): 5 Height (Inches): 9.00 Weight (Pounds): 130 General Appearance: no apparent distress EENT: normal ENT inspection Neck: normal alignment, supple Cardiovascular: normal rate, regular rhythm Respiratory/Chest: lungs clear, normal breath sounds Abdomen: non tender, soft Edema: no edema noted Arm (L), no edema noted Arm (R), no edema noted Leg (L), no edema noted Leg (R), no edema noted Pedal (L), no edema noted Pedal (R), no edema noted Generalized Walt Laws MD Sep 03, 2019 08:48
--- NOTE | 2019-09-03 08:48 | Infectious Diseases Prog Note ---
Assessment/Plan Assessment/Plan 74yo gentleman with PMH below brought in by custodial laborer for hyperglycemia. Pt states that he felt fine and they brought him to the hospital because his blood pressure and sugar were high. Denies fever, chills, sweats, cough, sob, chest pain, sob, abdominal pain, dysuria, hematuria, diarrhea. He does report pain "a little" and "sometimes" in his feet. Per nurse, pt is refusing potassium and insulin. Pt states that he likes having his sugars high because he feels better. Afebrile No leukocytosis Hyperglycemia possibly 2/2 infection Likely UTI does not appear to have come in with fontenot per charting UA WBC TNTC UCx: Staph species L 2nd toe cellulitis/gangrene possible amputation today Bacteremia? contaminant? possibly real given foot wound 09/01 BCx: CoNS 09/02 bcx: P Unlikely PNA CXR negative MRSA screen negative DM Dyslipidemia CAD Plan: continue Ceftriaxone and vancomycin #3, flagyl #2 f/u GPC speciation...discussed with lab to speciate f/u UCx...discussed with lab to speciate f/u MRSA screen f/u repeat bcx Thank you for this consult. [facility] will continue to follow the patient with you. Subjective Allergies: Coded Allergies: No Known Allergies (Unverified , 09/01/19) Subjective Afebrile. Amputation today? No leukocytosis. Pt now states that he had dysuria but is improving Pt denies chills, cough, sob, abdominal pain, diarrhea, feet pain. Objective Vital Signs Last 24 Hour Vital Signs Date Time Temp Pulse Resp B/P (MAP) Pulse Ox O2 Delivery O2 Flow Rate FiO2 09/03/19 04:00 98.8 88 18 126/74 (91) 97 09/03/19 00:16 98.6 86 18 130/76 (94) 98 09/02/19 20:00 98.6 89 16 128/62 (84) 98 09/02/19 16:00 97.8 86 18 130/80 (97) 99 09/02/19 12:00 97.5 84 18 146/78 (100) 100 09/02/19 09:30 Room Air 09/02/19 09:00 Room Air Height (Feet): 5 Height (Inches): 9.00 Weight (Pounds): 130 Objective Gen: NAD HEENT: anicteric sclera CV: RRR. no murmurs Resp: RRR. Soft. no TTP. no suprapubic pain Back: no flank pain Neuro: Alert. Interactive. Appropriate Psych: nonlabile. Ext: b/l feet wrapped Microbiology Date/Time Source Procedure Growth Status 09/01/19 16:35 Blood Blood Culture - Preliminary Staphylococcus Sp Coag Neg Resulted 09/01/19 16:25 Blood Blood Culture - Preliminary NO GROWTH AFTER 24 HOURS Resulted 09/01/19 17:36 Urine,Clean Catch Urine Culture - Preliminary Staphylococcus Species Resulted 09/01/19 17:45 Rectum - Final NO CARBAPENEM-RESISTANT ENTEROBACTERI... Complete 09/01/19 17:45 Rectum VRE Culture - Final NO VANCOMYCIN RESISTANT ENTEROCOCCUS ... Complete Laboratory Tests Test 09/03/19 07:55 White Blood Count 6.8 K/UL (4.8-10.8) Red Blood Count 4.01 M/UL (4.70-6.10) L Hemoglobin 11.0 G/DL (14.2-18.0) L Hematocrit 32.2 % (42.0-52.0) L Mean Corpuscular Volume 80 FL (80-99) Mean Corpuscular Hemoglobin 27.4 PG (27.0-31.0) Mean Corpuscular Hemoglobin Concent 34.0 G/DL (32.0-36.0) Red Cell Distribution Width 12.9 % (11.6-14.8) Platelet Count 399 K/UL (150-450) Mean Platelet Volume 5.3 FL (6.5-10.1) L Neutrophils (%) (Auto) 66.7 % (45.0-75.0) Lymphocytes (%) (Auto) 23.6 % (20.0-45.0) Monocytes (%) (Auto) 7.7 % (1.0-10.0) Eosinophils (%) (Auto) 1.0 % (0.0-3.0) Basophils (%) (Auto) 1.0 % (0.0-2.0) Sodium Level 135 MMOL/L (136-145) L Potassium Level 3.5 MMOL/L (3.5-5.1) Chloride Level 100 MMOL/L (98-107) Carbon Dioxide Level 32 MMOL/L (21-32) Anion Gap 4 mmol/L (5-15) L Blood Urea Nitrogen 10 mg/dL (7-18) Creatinine 0.7 MG/DL (0.55-1.30) Estimat Glomerular Filtration Rate mL/min (>60) Glucose Level 292 MG/DL (74-106) #H Calcium Level 8.2 MG/DL (8.5-10.1) L Current Medications Medications (Trade) Dose Ordered Sig/Indigo Route PRN Reason Start Time Stop Time Status Last Admin Dose Admin Acetaminophen (Tylenol) 650 mg Q4H PRN ORAL Mild Pain (Pain Scale 1-3) 09/01/19 17:45 10/01/19 17:44 Aspirin (Ecotrin) 81 mg DAILY ORAL 09/02/19 09:00 10/02/19 08:59 09/02/19 09:25 Atorvastatin Calcium (Lipitor) 40 mg BEDTIME ORAL 09/01/19 21:00 10/01/19 20:59 09/02/19 21:03 Ceftriaxone Sodium 1 gm/ Dextrose 55 ml @ 110 mls/hr Q24H IVPB 09/02/19 18:30 09/09/19 18:29 09/02/19 19:58 Clopidogrel Bisulfate (Plavix) 75 mg DAILY ORAL 09/02/19 09:00 10/02/19 08:59 09/02/19 09:26 Dextrose (Dextrose 50%) 25 ml Q30M PRN IV Hypoglycemia 09/01/19 18:00 10/01/19 17:59 Dextrose (Dextrose 50%) 50 ml Q30M PRN IV Hypoglycemia 09/01/19 18:00 10/01/19 17:59 Enoxaparin Sodium (Lovenox) 40 mg Q24H SUBQ 09/01/19 20:00 10/01/19 19:59 09/02/19 19:59 Famotidine (Pepcid) 40 mg DAILY ORAL 09/02/19 09:00 10/02/19 08:59 09/02/19 09:26 Insulin Aspart (NovoLOG) BEFORE MEALS AND HS SUBQ 09/01/19 21:00 10/01/19 20:59 09/03/19 05:35 Insulin Detemir (Levemir) 12 units Q24H SUBQ 09/01/19 21:00 10/01/19 20:59 09/01/19 21:39 Metformin HCl (Glucophage) 850 mg TIAC ORAL 09/02/19 06:30 10/02/19 06:29 09/03/19 05:34 Metronidazole (Flagyl) 500 mg Q8HR ORAL 09/02/19 22:00 09/09/19 21:59 09/03/19 05:34 Ondansetron HCl (Zofran) 4 mg Q6H PRN IVP Nausea & Vomiting 09/01/19 17:45 10/01/19 17:44 Sodium Chloride 1,000 ml @ 100 mls/hr Q10H IV 09/01/19 18:00 10/01/19 17:59 09/03/19 07:00 Vancomycin HCl (Vanco rx to dose) 1 ea DAILY PRN MISC . 09/02/19 15:00 10/02/19 14:59 Vancomycin HCl 1 gm/Dextrose 275 ml @ 183.708 mls/hr Q12HR@0500,1700 IVPB 09/02/19 17:00 09/07/19 16:59 09/03/19 03:56 Erick Chirinos MD Sep 03, 2019 08:48
--- NOTE | 2019-09-03 09:20 | Consultation ---
History of Present Illness General Date patient seen: Sep 03, 2019 Time patient seen: 09:15 Chief Complaint: General Complaint Referring physician: Walt Burrows Reason for Consultation: Pre op clearance Present Illness HPI he patient is a Faroese-speaking 74-year-old gentleman who was brought in by cut out worker due to difficult to control high glucose readings. Noted to have an underlying urinary tract infection. The patient denies any current chest pain, nausea, vomiting, or diarrhea. No shortness of breath. He resides at a boarding care facility. No other recent history of falls or trauma to note. Cardiology consulted for pre op clearance for toe amputation today. EKG normal sinus no bleeding history, no anesthesia previous reactions. No resting symptoms. No recent MA. Allergies: Coded Allergies: No Known Allergies (Unverified , 09/01/19) Medication History Scheduled Aspirin* (Aspir 81*), 81 MG ORAL DAILY, (Reported) Atorvastatin Calcium* (Lipitor*), 40 MG ORAL BEDTIME, (Reported) Clopidogrel Bisulfate* (Plavix*), 75 MG ORAL DAILY, (Reported) Docusate Sodium* (Colace*), 100 MG ORAL DAILY, (Reported) Folic Acid* (Folic Acid*), 1 MG ORAL DAILY, (Reported) Nph, Human Insulin Isophane* (Novolin N*), 0 SQ BEFORE MEALS AND HS, (Reported) Miscellaneous Medications Multivitamin (Multi-Vitamin Daily), 1 EACH PO, (Reported) Patient History Healthcare decision maker Resuscitation status Full Code Advanced Directive on File No Review of Systems Constitutional: Reports: no symptoms Eye: Reports: no symptoms ENT: Reports: no symptoms Respiratory: Reports: no symptoms Cardiovascular: Reports: no symptoms Gastrointestinal: Reports: no symptoms Genitourinary: Reports: no symptoms Musculoskeletal: Reports: no symptoms Skin: Reports: no symptoms Psychiatric: Reports: no symptoms Neurological: Reports: no symptoms Endocrine: Reports: no symptoms Hematologic/Lymphatic: Reports: no symptoms Physical Exam General Appearance: no apparent distress, alert Lines, tubes and drains: peripheral HEENT: normocephalic, atraumatic Neck: non-tender, normal alignment, supple, normal inspection Respiratory/Chest: chest wall non-tender, lungs clear Cardiovascular/Chest: normal peripheral pulses, normal rate, regular rhythm Abdomen: normal bowel sounds, non tender, soft, no organomegaly, no mass Extremities: normal range of motion, non-tender, normal inspection, no calf tenderness, normal capillary refill, non-pitting Skin Exam: normal pigmentation, warm/dry Neurologic: fruit raiser II-XII grossly normal, no motor/sensory deficits Last 24 Hour Vital Signs Date Time Temp Pulse Resp B/P (MAP) Pulse Ox O2 Delivery O2 Flow Rate FiO2 09/03/19 04:00 98.8 88 18 126/74 (91) 97 09/03/19 00:16 98.6 86 18 130/76 (94) 98 09/02/19 20:00 98.6 89 16 128/62 (84) 98 09/02/19 16:00 97.8 86 18 130/80 (97) 99 09/02/19 12:00 97.5 84 18 146/78 (100) 100 09/02/19 09:30 Room Air Intake and Output 09/02/19 09/03/19 19:00 07:00 Intake Total 1975.000 ml 1230.000 ml Balance 1975.000 ml 1230.000 ml Intake Oral 1000 ml 0 ml IV Total 975.000 ml 1230.000 ml # Voids 8 4 # Bowel Movements 2 Laboratory Tests Test 09/03/19 07:55 White Blood Count 6.8 K/UL (4.8-10.8) Red Blood Count 4.01 M/UL (4.70-6.10) L Hemoglobin 11.0 G/DL (14.2-18.0) L Hematocrit 32.2 % (42.0-52.0) L Mean Corpuscular Volume 80 FL (80-99) Mean Corpuscular Hemoglobin 27.4 PG (27.0-31.0) Mean Corpuscular Hemoglobin Concent 34.0 G/DL (32.0-36.0) Red Cell Distribution Width 12.9 % (11.6-14.8) Platelet Count 399 K/UL (150-450) Mean Platelet Volume 5.3 FL (6.5-10.1) L Neutrophils (%) (Auto) 66.7 % (45.0-75.0) Lymphocytes (%) (Auto) 23.6 % (20.0-45.0) Monocytes (%) (Auto) 7.7 % (1.0-10.0) Eosinophils (%) (Auto) 1.0 % (0.0-3.0) Basophils (%) (Auto) 1.0 % (0.0-2.0) Sodium Level 135 MMOL/L (136-145) L Potassium Level 3.5 MMOL/L (3.5-5.1) Chloride Level 100 MMOL/L (98-107) Carbon Dioxide Level 32 MMOL/L (21-32) Anion Gap 4 mmol/L (5-15) L Blood Urea Nitrogen 10 mg/dL (7-18) Creatinine 0.7 MG/DL (0.55-1.30) Estimat Glomerular Filtration Rate mL/min (>60) Glucose Level 292 MG/DL (74-106) #H Calcium Level 8.2 MG/DL (8.5-10.1) L Height (Feet): 5 Height (Inches): 9.00 Weight (Pounds): 130 Medications Current Medications Medications (Trade) Dose Ordered Sig/Indigo Route PRN Reason Start Time Stop Time Status Last Admin Dose Admin Acetaminophen (Tylenol) 650 mg Q4H PRN ORAL Mild Pain (Pain Scale 1-3) 09/01/19 17:45 10/01/19 17:44 Aspirin (Ecotrin) 81 mg DAILY ORAL 09/02/19 09:00 10/02/19 08:59 09/02/19 09:25 Atorvastatin Calcium (Lipitor) 40 mg BEDTIME ORAL 09/01/19 21:00 10/01/19 20:59 09/02/19 21:03 Ceftriaxone Sodium 1 gm/ Dextrose 55 ml @ 110 mls/hr Q24H IVPB 09/02/19 18:30 09/09/19 18:29 09/02/19 19:58 Clopidogrel Bisulfate (Plavix) 75 mg DAILY ORAL 09/02/19 09:00 10/02/19 08:59 09/02/19 09:26 Dextrose (Dextrose 50%) 25 ml Q30M PRN IV Hypoglycemia 09/01/19 18:00 10/01/19 17:59 Dextrose (Dextrose 50%) 50 ml Q30M PRN IV Hypoglycemia 09/01/19 18:00 10/01/19 17:59 Enoxaparin Sodium (Lovenox) 40 mg Q24H SUBQ 09/01/19 20:00 10/01/19 19:59 09/02/19 19:59 Famotidine (Pepcid) 40 mg DAILY ORAL 09/02/19 09:00 10/02/19 08:59 09/02/19 09:26 Insulin Aspart (NovoLOG) BEFORE MEALS AND HS SUBQ 09/01/19 21:00 10/01/19 20:59 09/03/19 05:35 Insulin Detemir (Levemir) 12 units Q24H SUBQ 09/01/19 21:00 10/01/19 20:59 09/01/19 21:39 Metformin HCl (Glucophage) 850 mg TIAC ORAL 09/02/19 06:30 10/02/19 06:29 09/03/19 05:34 Metronidazole (Flagyl) 500 mg Q8HR ORAL 09/02/19 22:00 09/09/19 21:59 09/03/19 05:34 Ondansetron HCl (Zofran) 4 mg Q6H PRN IVP Nausea & Vomiting 09/01/19 17:45 10/01/19 17:44 Vancomycin HCl (Vanco rx to dose) 1 ea DAILY PRN MISC . 09/02/19 15:00 10/02/19 14:59 Vancomycin HCl 1 gm/Dextrose 275 ml @ 183.708 mls/hr Q12HR@0500,1700 IVPB 09/02/19 17:00 09/07/19 16:59 09/03/19 03:56 Assessment/Plan Status: stable Assessment/Plan: 1. Diabetes mellitus. 2. Hyperlipidemia. 3. Coronary artery disease. 4. Pre operative evaluation 5. UTI Patient is cleared to proceed with low risk surgery. No acute cardaic conditions. Risk factors controlled, no symptoms. Low risk of complications. Recommend richard operative beta blockers Oscar Perez MD Sep 03, 2019 09:20
[2019-09-03] MEDS ORDERED: Bupivacaine 0.25% Inj 30ml INJ ONE (12:28)
[2019-09-03] MEDS ORDERED: ePHEDrine 50mg/ml Inj ONE (12:55)
[2019-09-03] MEDS ORDERED: LR 1000ml ONE (12:55)
[2019-09-03] MEDS ORDERED: Sterile Water Irrig 1000ml IRRIG ONE (12:55)
[2019-09-03] MEDS ORDERED: NS Irrig 1000ml ONE (12:55)
--- NOTE | 2019-09-03 13:03 | Pre-Procedure Note/Attestation ---
Pre-Procedure Note/Attestation Complete Prior to Procedure Planned Procedure: left Procedure Narrative: Left 2nd toe amputation Indications for Procedure Pre-Operative Diagnosis: Gangrene Cellulitis DM foot ulcer Attestation I attest that I discussed the nature of the procedure; its benefits; risks and complications; and alternatives (and the risks and benefits of such alternatives ), prior to the procedure, with the patient (or the patient's legal automotive sales representative). I attest that, if there was a reasonable possibility of needing a blood transfusion, the patient (or the patient's legal automotive sales representative) was given the [facility] standardized written summary, pursuant to the Gregg Jonny Blood Safety Act ([place] Health and Safety Code # 1645, as amended). I attest that I re-evaluated the patient just prior to the surgery and that there has been no change in the patient's H&P, except as documented below: Dc Manzo DPM Sep 03, 2019 13:03
--- NOTE | 2019-09-03 13:08 | Anethesia Preoperative Eval ---
Anesthesia Pre-op PMH/ROS General Date of Evaluation: Sep 03, 2019 Time of Evaluation: 13:05 Anesthesiologist: jazmín ASA Score: ASA 4 Mallampati Score Class I : Soft palate, uvula, fauces, pillars visible Class II: Soft palate, uvula, fauces visible Class III: Soft palate, base of uvula visible Class IV: Only hard plate visible Anesthesia History: none Family History: no anesthesia problems Allergies: Coded Allergies: No Known Allergies (Unverified , 09/01/19) Patient NPO?: Yes NPO Date: Sep 03, 2019 NPO Time: 0000 Past Medical History Cardiovascular: Reports: HTN, CAD Endocrine: Reports: DM Hematology/Immune: Reports: anemia Anesthesia Pre-op Phys. Exam Physician Exam Last Vital Signs Date Time Temp Pulse Resp B/P (MAP) Pulse Ox O2 Delivery O2 Flow Rate FiO2 09/03/19 08:00 96.8 84 20 132/79 (96) 09/03/19 04:00 97 09/02/19 09:30 Room Air Anesthesia Pre-op A/P Labs Hematology Test 09/03/19 07:55 White Blood Count 6.8 K/UL (4.8-10.8) Red Blood Count 4.01 M/UL (4.70-6.10) L Hemoglobin 11.0 G/DL (14.2-18.0) L Hematocrit 32.2 % (42.0-52.0) L Mean Corpuscular Volume 80 FL (80-99) Mean Corpuscular Hemoglobin 27.4 PG (27.0-31.0) Mean Corpuscular Hemoglobin Concent 34.0 G/DL (32.0-36.0) Red Cell Distribution Width 12.9 % (11.6-14.8) Platelet Count 399 K/UL (150-450) Mean Platelet Volume 5.3 FL (6.5-10.1) L Neutrophils (%) (Auto) 66.7 % (45.0-75.0) Lymphocytes (%) (Auto) 23.6 % (20.0-45.0) Monocytes (%) (Auto) 7.7 % (1.0-10.0) Eosinophils (%) (Auto) 1.0 % (0.0-3.0) Basophils (%) (Auto) 1.0 % (0.0-2.0) Chemistry Test 09/03/19 07:55 Sodium Level 135 MMOL/L (136-145) L Potassium Level 3.5 MMOL/L (3.5-5.1) Chloride Level 100 MMOL/L (98-107) Carbon Dioxide Level 32 MMOL/L (21-32) Anion Gap 4 mmol/L (5-15) L Blood Urea Nitrogen 10 mg/dL (7-18) Creatinine 0.7 MG/DL (0.55-1.30) Estimat Glomerular Filtration Rate mL/min (>60) Glucose Level 292 MG/DL (74-106) #H Calcium Level 8.2 MG/DL (8.5-10.1) Prerna Dean GRAPE PICKER Sep 03, 2019 13:08
[2019-09-03] MEDS ORDERED: fentaNYL 100 mcg/2 mL IV ONE (13:13)
[2019-09-03] MEDS ORDERED: Lidocaine 1% MPF 10mg/ml 5ml ONE (13:22)
[2019-09-03] MEDS ORDERED: Propofol 200mg/20ml IV ONE (13:22)
--- NOTE | 2019-09-03 13:57 | Brief Operative Note ---
Immediate Post Operative Note Operative Note Pre-op Diagnosis: Gangrene Cellulitis DM foot ulcer Procedure: Left 2nd toe amputation Post-op Diagnosis: same as pre-op Surgeon: Dc Manzo DPM Trade Facilitator: none Additional Surgeons: none Anesthesiologist: Prerna Inman CRNA Anesthesia: MAC Specimen: yes - left 2nd toe and cultures Complications: none Condition: stable Fluids: anesthesia Estimated Blood Loss: none Drains: none Tourniquet time: 14 - min Implant(s) used?: No Dc Manzo DPM Sep 03, 2019 13:57
--- NOTE | 2019-09-03 14:04 | Anethesia Preoperative Eval ---
Anesthesia Pre-op PMH/ROS General Date of Evaluation: Sep 03, 2019 Time of Evaluation: 12:55 Anesthesiologist: jazmín ASA Score: ASA 4 Mallampati Score Class I : Soft palate, uvula, fauces, pillars visible Class II: Soft palate, uvula, fauces visible Class III: Soft palate, base of uvula visible Class IV: Only hard plate visible Mallampati Classification: Class III Surgeon: lore Diagnosis: gangrene 2nd left toe Surgical Procedure: Amputation of left 2nd toe Anesthesia History: none Family History: no anesthesia problems Allergies: Coded Allergies: No Known Allergies (Unverified , 09/01/19) Medications: see eMAR Patient NPO?: Yes NPO Date: Sep 03, 2019 NPO Time: 0000 Past Medical History Cardiovascular: Reports: HTN, CAD Pulmonary: Denies: asthma, COPD, OLVIN, other Gastrointestinal/Genitourinary: Denies: GERD, CRI, ESRD, other Neurologic/Psychiatric: Denies: dementia, CVA, depression/anxiety, TIA Endocrine: Reports: DM; Denies: hypothyroidism, steroids, other HEENT: Denies: cataract (L), cataract (R), glaucoma, TEJON (L), TEJON (R), other Hematology/Immune: Reports: anemia Musculoskeletal/Integumentary: Denies: OA, RA, DJD, DDD, edema, other PMH Narrative: cellulitis ; gangrene PSxH Narrative: multiple amputation Anesthesia Pre-op Phys. Exam Physician Exam Last Vital Signs Date Time Temp Pulse Resp B/P (MAP) Pulse Ox O2 Delivery O2 Flow Rate FiO2 09/03/19 12:00 97.3 84 18 125/76 (92) 09/03/19 04:00 97 09/02/19 09:30 Room Air Constitutional: NAD Neurologic: CN 2-12 intact Cardiovascular: RRR Respiratory: CTA Gastrointestinal: S/NT/ND Airway Exam Mallampati Classification 2 Mallampati Score: Class III MO: limited Neck: normal TMD: 2fb ROM: limited Teeth: missing, broken Dentures: no upper, no lower Anesthesia Pre-op A/P Labs Hematology Test 09/03/19 07:55 White Blood Count 6.8 K/UL (4.8-10.8) Red Blood Count 4.01 M/UL (4.70-6.10) L Hemoglobin 11.0 G/DL (14.2-18.0) L Hematocrit 32.2 % (42.0-52.0) L Mean Corpuscular Volume 80 FL (80-99) Mean Corpuscular Hemoglobin 27.4 PG (27.0-31.0) Mean Corpuscular Hemoglobin Concent 34.0 G/DL (32.0-36.0) Red Cell Distribution Width 12.9 % (11.6-14.8) Platelet Count 399 K/UL (150-450) Mean Platelet Volume 5.3 FL (6.5-10.1) L Neutrophils (%) (Auto) 66.7 % (45.0-75.0) Lymphocytes (%) (Auto) 23.6 % (20.0-45.0) Monocytes (%) (Auto) 7.7 % (1.0-10.0) Eosinophils (%) (Auto) 1.0 % (0.0-3.0) Basophils (%) (Auto) 1.0 % (0.0-2.0) Chemistry Test 09/03/19 07:55 Sodium Level 135 MMOL/L (136-145) L Potassium Level 3.5 MMOL/L (3.5-5.1) Chloride Level 100 MMOL/L (98-107) Carbon Dioxide Level 32 MMOL/L (21-32) Anion Gap 4 mmol/L (5-15) L Blood Urea Nitrogen 10 mg/dL (7-18) Creatinine 0.7 MG/DL (0.55-1.30) Estimat Glomerular Filtration Rate mL/min (>60) Glucose Level 292 MG/DL (74-106) #H Calcium Level 8.2 MG/DL (8.5-10.1) L Studies Pre-op Studies: EKG - SR Risk Assessment & Plan Assessment: [place] speaking; oriented to Name /place and procedure; consent obtained Plan: General LMA Status Change Before Surgery: No Pre-Antibiotics Drug: declined Prerna Inman CRNA Sep 03, 2019 14:04
--- NOTE | 2019-09-03 14:06 | Immediate Post-Op Evaluation ---
Immediate Post-Op Evalulation Immediate Post-Op Evalulation Procedure: left 2nd toe amputation Date of Evaluation: Sep 03, 2019 Time of Evaluation: 14:06 IV Fluids: 500 Blood Pressure Systolic: 100 Blood Pressure Diastolic: 65 Pulse Rate: 90 Respiratory Rate: 14 O2 Sat by Pulse Oximetry: 99 Temperature (Fahrenheit): 98.0 Nausea: No Vomiting: No Complications none Patient Status: awake, reacts, patent Hydration Status: adequate Drug: none Prerna Inman CRNA Sep 03, 2019 14:06
[2019-09-03] MEDS ORDERED: fentaNYL 100 mcg/2 mL IV PRN (14:15)
--- NOTE | 2019-09-03 14:36 | General Progress Note ---
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 ICD Codes: E11.621 - Type 2 diabetes mellitus with foot ulcer; L97.524 - Non- pressure chronic ulcer of other part of left foot with necrosis of bone SNOMED: 83735042, 019309448, 695650816, 416742652, 064710626 (7) Gangrene of toe of left foot ICD Codes: I96 - Gangrene, not elsewhere classified SNOMED: 41482762931083028 Status: stable, progressing Assessment/Plan: pt diet abx pain control Subjective Constitutional: Reports: weakness Allergies: Coded Allergies: No Known Allergies (Unverified , 09/01/19) All Systems: reviewed and negative except above Subjective calm pending toe sx Objective Last 24 Hour Vital Signs Date Time Temp Pulse Resp B/P (MAP) Pulse Ox O2 Delivery O2 Flow Rate FiO2 09/03/19 14:20 91 14 138/74 98 09/03/19 14:10 91 17 133/75 95 09/03/19 14:06 90 14 99 09/03/19 14:00 85 15 124/72 97 Nasal Cannula 3 09/03/19 13:55 98.0 91 14 100/65 98 Nasal Cannula 3 09/03/19 12:00 97.3 84 18 125/76 (92) 09/03/19 08:00 96.8 84 20 132/79 (96) 09/03/19 04:00 98.8 88 18 126/74 (91) 97 09/03/19 00:16 98.6 86 18 130/76 (94) 98 09/02/19 20:00 98.6 89 16 128/62 (84) 98 09/02/19 16:00 97.8 86 18 130/80 (97) 99 Intake and Output 09/02/19 09/03/19 19:00 07:00 Intake Total 1975.000 ml 1230.000 ml Balance 1975.000 ml 1230.000 ml Intake Oral 1000 ml 0 ml IV Total 975.000 ml 1230.000 ml # Voids 8 4 # Bowel Movements 2 Laboratory Tests 09/03/19 07:55: White Blood Count 6.8, Red Blood Count 4.01L, Hemoglobin 11.0L, Hematocrit 32.2L , Mean Corpuscular Volume 80, Mean Corpuscular Hemoglobin 27.4, Mean Corpuscular Hemoglobin Concent 34.0, Red Cell Distribution Width 12.9, Platelet Count 399, Mean Platelet Volume 5.3L, Neutrophils (%) (Auto) 66.7, Lymphocytes ( %) (Auto) 23.6, Monocytes (%) (Auto) 7.7, Eosinophils (%) (Auto) 1.0, Basophils (%) (Auto) 1.0, Sodium Level 135L, Potassium Level 3.5, Chloride Level 100, Carbon Dioxide Level 32, Anion Gap 4L, Blood Urea Nitrogen 10, Creatinine 0.7, Estimat Glomerular Filtration Rate , Glucose Level 292#H, Calcium Level 8.2L Height (Feet): 5 Height (Inches): 9.00 Weight (Pounds): 130 General Appearance: lethargic EENT: normal ENT inspection Neck: normal alignment Cardiovascular: normal peripheral pulses, normal rate, regular rhythm Respiratory/Chest: chest wall non-tender, lungs clear, normal breath sounds Abdomen: normal bowel sounds, non tender, soft Extremities: normal inspection Edema: no edema noted Arm (L), no edema noted Arm (R), no edema noted Leg (L), no edema noted Leg (R), no edema noted Pedal (L), no edema noted Pedal (R), no edema noted Generalized Neurologic: motor weakness Skin: normal pigmentation, warm/dry Greg Maurer DO Sep 03, 2019 14:36
--- NOTE | 2019-09-03 15:18 | 48 Hour Post Anesthesia Eval ---
Post Anesthesia Evaluation Procedure: left 2nd toe amputation Date of Evaluation: Sep 03, 2019 Time of Evaluation: 15:18 Blood Pressure Systolic: 139 0: 75 Pulse Rate: 51 Respiratory Rate: 15 O2 Sat by Pulse Oximetry: 98 Airway: patent Nausea: No Vomiting: No Hydration Status: adequate Cardiopulmonary Status: stable Mental Status/LOC: patient returned to baseline Post-Anesthesia Complications: none Follow-up care needed: N/A Prerna Inman CRNA Sep 03, 2019 15:18
[2019-09-03] MEDS ORDERED: Vancomycin 1 GM in NS 275 ML IVPB SCH (17:00)
--- NOTE | 2019-09-03 17:27 | Surgery Progress Note ---
Surgery Progress Note Subjective Additional Comments s/p amputation by podiatry doing well comfortable Objective Last 24 Hour Vital Signs Date Time Temp Pulse Resp B/P (MAP) Pulse Ox O2 Delivery O2 Flow Rate FiO2 09/03/19 16:00 97.5 86 17 123/83 (96) 09/03/19 15:18 51 15 98 09/03/19 15:00 97.5 81 18 139/76 97 09/03/19 14:45 82 14 137/71 98 09/03/19 14:30 84 16 134/73 96 09/03/19 14:20 91 14 138/74 98 09/03/19 14:10 91 17 133/75 95 09/03/19 14:06 90 14 99 09/03/19 14:00 85 15 124/72 97 Nasal Cannula 3 09/03/19 13:55 98.0 91 14 100/65 98 Nasal Cannula 3 09/03/19 12:00 97.3 84 18 125/76 (92) 09/03/19 08:00 96.8 84 20 132/79 (96) 09/03/19 04:00 98.8 88 18 126/74 (91) 97 09/03/19 00:16 98.6 86 18 130/76 (94) 98 09/02/19 20:00 98.6 89 16 128/62 (84) 98 I&O Intake and Output 09/02/19 09/03/19 19:00 07:00 Intake Total 1975.000 ml 1230.000 ml Balance 1975.000 ml 1230.000 ml Intake Oral 1000 ml 0 ml IV Total 975.000 ml 1230.000 ml # Voids 8 4 # Bowel Movements 2 Dressing: dry Wound: clean Cardiovascular: RSR Respiratory: clear Abdomen: soft, flat, non-tender, present bowel sounds Extremities: other Laboratory Tests Test 09/03/19 07:55 White Blood Count 6.8 K/UL (4.8-10.8) Red Blood Count 4.01 M/UL (4.70-6.10) L Hemoglobin 11.0 G/DL (14.2-18.0) L Hematocrit 32.2 % (42.0-52.0) L Mean Corpuscular Volume 80 FL (80-99) Mean Corpuscular Hemoglobin 27.4 PG (27.0-31.0) Mean Corpuscular Hemoglobin Concent 34.0 G/DL (32.0-36.0) Red Cell Distribution Width 12.9 % (11.6-14.8) Platelet Count 399 K/UL (150-450) Mean Platelet Volume 5.3 FL (6.5-10.1) L Neutrophils (%) (Auto) 66.7 % (45.0-75.0) Lymphocytes (%) (Auto) 23.6 % (20.0-45.0) Monocytes (%) (Auto) 7.7 % (1.0-10.0) Eosinophils (%) (Auto) 1.0 % (0.0-3.0) Basophils (%) (Auto) 1.0 % (0.0-2.0) Sodium Level 135 MMOL/L (136-145) L Potassium Level 3.5 MMOL/L (3.5-5.1) Chloride Level 100 MMOL/L (98-107) Carbon Dioxide Level 32 MMOL/L (21-32) Anion Gap 4 mmol/L (5-15) L Blood Urea Nitrogen 10 mg/dL (7-18) Creatinine 0.7 MG/DL (0.55-1.30) Estimat Glomerular Filtration Rate mL/min (>60) Glucose Level 292 MG/DL (74-106) #H Calcium Level 8.2 MG/DL (8.5-10.1) L Plan Problems: (1) Wound abscess (2) Cellulitis of left foot Assessment & Plan: 74M hx DM non compliance prior ray amputations now with left 2nd and 3rd ray infection gangrene, exposed bone labs noted on ABX good DP pulse b/l s/p amputation by podiatry stable comfortable local wound care Abx as per ID will follow with recs. 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
[2019-09-03] MEDS: cefTRIAXone 1 GM in NS 55 ML IVPB SCH (19:06)
--- NOTE | 2019-09-03 19:15 | Operative Note - Dictated ---
SURGEON: Dc Manzo D.P.M. INSTRUMENT SETTER SURGEON: None. ANESTHESIOLOGIST: Prerna Inman CRNA. TYPE OF ANESTHESIA: LMA with local. PREOPERATIVE DIAGNOSES: 1. Cellulitis, left second toe. 2. Gangrene, left second toe. 3. Diabetic foot ulcer. POSTOPERATIVE DIAGNOSES: 1. Cellulitis, left second toe. 2. Gangrene, left second toe. 3. Diabetic foot ulcer. PROCEDURE PERFORMED: Left second toe amputation. ANTIBIOTICS: Antibiotics given on the floor. COMPLICATIONS: None. ESTIMATED BLOOD LOSS: Zero. TOURNIQUET TIME: 14 minutes. SPECIMENS: Left second toe disarticulated at the metatarsophalangeal joint as well as cultures. OPERATIVE PROCEDURE: The patient was transferred to the operating room and placed on the operating table supine position. Anesthesiologist then began anesthesia. Time-out was taken. Correct extremity and patient identified. Lower extremity was scrubbed, prepped and draped in an usual aseptic manner. After anesthesia check, elliptical incision was made dorsal plantar straight to bone. The toe was disarticulated at the metatarsophalangeal joint. Metatarsal head appeared viable. No abscesses or discrete fluid collections were noted. Wound appeared healthy. No tracking or deep sinus tracts were noted. Wound was copiously flushed. Deep structures coapted with 3-0 Vicryl. Skin with 3-0 nylon. Prior to sutures being placed, gloves were changed. A 5 mL of plain 0.25% Marcaine was utilized to anesthetize the surgical area. Dressings were applied. The patient tolerated the procedure and anesthesia well. Tourniquet was deflated at 14 minutes. We will return the patient back to the floor, resume his preoperative medications and diet. We will see him postoperatively tomorrow for postop check. If appear stable, we will discharge patient back to [facility]. Dc Manzo D.P.M. DR: Tommy JOB#: [id number] CC:
[2019-09-03] MEDS: Atorvastatin 80mg tab ORAL SCH (21:14)
[2019-09-03] MEDS: Enoxaparin 40mg Inj SUBQ SCH (21:15)
[2019-09-03] MEDS: Levemir Flexpen SUBQ SCH (21:17)
[2019-09-04 00:20] VITALS: BP 128/67
[2019-09-04 04:00] VITALS: BP 119/61
[2019-09-04 04:04] LABS: BASOPHILS % (AUTO) 0.8 % (0.0-2.0); EOSINOPHILS % (AUTO) 0.8 % (0.0-3.0); HEMATOCRIT 32.9 % (42.0-52.0); HEMOGLOBIN 11.2 G/DL (14.2-18.0); LYMPHOCYTES % (AUTO) 22.2 % (20.0-45.0); MEAN CORPUSCULAR VOLUME 80 FL (80-99); MONOCYTES % (AUTO) 7.4 % (1.0-10.0); NEUTROPHILS % (AUTO) 68.8 % (45.0-75.0); PLATELET COUNT 387 K/UL (150-450); RED CELL DISTRIBUTION WIDTH 12.7 % (11.6-14.8)
[2019-09-04 04:22] LABS: ANION GAP 3 mmol/L (5-15); BLOOD UREA NITROGEN 11 mg/dL (7-18); CARBON DIOXIDE 31 MMOL/L (21-32); CHLORIDE 100 MMOL/L (98-107); CREATININE 0.7 MG/DL (0.55-1.30); POTASSIUM 3.5 MMOL/L (3.5-5.1); SODIUM 134 MMOL/L (136-145)
[2019-09-04] MEDS: Vancomycin 1 GM in NS 275 ML IVPB SCH ×3 (04:56→20:34)
[2019-09-04] MEDS: metroNIDAZOLE 500mg tab ORAL SCH ×3 (05:48→20:33)
[2019-09-04] MEDS: NovoLOG Insulin Flexpen SUBQ SCH ×4 (05:49→20:35)
[2019-09-04 08:00] VITALS: BP 148/85
--- NOTE | 2019-09-04 09:12 | Nephrology Progress Note ---
Assessment/Plan Status: stable, progressing Assessment/Plan: A/P 1) Hyperglycemia- resolved - continue insulin and accuchecks 2) UTI/bacteremia- defer Abx to ID - DC today with ID final reccs 3) LLE toe wounds - s/p surgery and toe amputations 4) Dehydration- resolved. 5) DVT prophylaxsis with lovenox Disposition- DC back to board and care if cleared by surgery and ID Subjective Date patient seen: Sep 04, 2019 Time patient seen: 09:07 ROS Limited/Unobtainable: No Allergies: Coded Allergies: No Known Allergies (Unverified , 09/01/19) Subjective Patient feeling better. Had foot surgery Objective Last 24 Hour Vital Signs Date Time Temp Pulse Resp B/P (MAP) Pulse Ox O2 Delivery O2 Flow Rate FiO2 09/04/19 04:00 96.6 83 20 119/61 (80) 100 09/04/19 00:20 99.5 81 20 128/67 (87) 100 09/03/19 20:00 98.4 85 18 111/56 (74) 99 09/03/19 16:00 97.5 86 17 123/83 (96) 09/03/19 15:18 51 15 98 09/03/19 15:00 97.5 81 18 139/76 97 09/03/19 14:45 82 14 137/71 98 09/03/19 14:30 84 16 134/73 96 09/03/19 14:20 91 14 138/74 98 09/03/19 14:10 91 17 133/75 95 09/03/19 14:06 90 14 99 09/03/19 14:00 85 15 124/72 97 Nasal Cannula 3 09/03/19 13:55 98.0 91 14 100/65 98 Nasal Cannula 3 09/03/19 12:00 97.3 84 18 125/76 (92) Intake and Output 09/03/19 09/04/19 19:00 07:00 Intake Total 370 ml 330.000 ml Output Total 300 ml 700 ml Balance 70 ml -370.000 ml Intake Oral 120 ml IV Total 250 ml 330.000 ml Output Urine Total 300 ml 700 ml # Voids 2 3 # Bowel Movements 1 Laboratory Tests 09/04/19 03:56: White Blood Count 7.0, Red Blood Count 4.10L, Hemoglobin 11.2L, Hematocrit 32.9L , Mean Corpuscular Volume 80, Mean Corpuscular Hemoglobin 27.3, Mean Corpuscular Hemoglobin Concent 34.0, Red Cell Distribution Width 12.7, Platelet Count 387, Mean Platelet Volume 5.1L, Neutrophils (%) (Auto) 68.8, Lymphocytes ( %) (Auto) 22.2, Monocytes (%) (Auto) 7.4, Eosinophils (%) (Auto) 0.8, Basophils (%) (Auto) 0.8, Sodium Level 134L, Potassium Level 3.5, Chloride Level 100, Carbon Dioxide Level 31, Anion Gap 3L, Blood Urea Nitrogen 11, Creatinine 0.7, Estimat Glomerular Filtration Rate , Glucose Level 275H, Calcium Level 8.0L 09/04/19 04:00: Vancomycin Level Trough 9.9 Height (Feet): 5 Height (Inches): 9.00 Weight (Pounds): 130 General Appearance: no apparent distress, alert EENT: normal ENT inspection Neck: normal alignment, supple Cardiovascular: normal rate, regular rhythm Respiratory/Chest: lungs clear, normal breath sounds Abdomen: non tender, soft Edema: no edema noted Arm (L), no edema noted Arm (R), no edema noted Leg (L), no edema noted Leg (R), no edema noted Pedal (L), no edema noted Pedal (R), no edema noted Generalized Walt Laws MD Sep 04, 2019 09:12
[2019-09-04] MEDS: Aspirin EC 81mg tab ORAL SCH (09:14)
[2019-09-04 12:00] VITALS: BP 120/68
--- NOTE | 2019-09-04 13:34 | General Progress Note ---
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 ICD Codes: E11.621 - Type 2 diabetes mellitus with foot ulcer; L97.524 - Non- pressure chronic ulcer of other part of left foot with necrosis of bone SNOMED: 85400973, 384917967, 503443157, 065389296, 049088492 (7) Gangrene of toe of left foot ICD Codes: I96 - Gangrene, not elsewhere classified SNOMED: 30293374781991121 Status: stable, progressing Assessment/Plan: pt diet abx pain control wound care cbc bmp am Subjective Constitutional: Reports: weakness Allergies: Coded Allergies: No Known Allergies (Unverified , 09/01/19) All Systems: reviewed and negative except above Subjective calm sleepy Objective Last 24 Hour Vital Signs Date Time Temp Pulse Resp B/P (MAP) Pulse Ox O2 Delivery O2 Flow Rate FiO2 09/04/19 12:00 97.4 81 17 120/68 (85) 97 09/04/19 08:00 98.0 82 17 148/85 (106) 99 09/04/19 04:00 96.6 83 20 119/61 (80) 100 09/04/19 00:20 99.5 81 20 128/67 (87) 100 09/03/19 20:00 98.4 85 18 111/56 (74) 99 09/03/19 16:00 97.5 86 17 123/83 (96) 09/03/19 15:18 51 15 98 09/03/19 15:00 97.5 81 18 139/76 97 09/03/19 14:45 82 14 137/71 98 09/03/19 14:30 84 16 134/73 96 09/03/19 14:20 91 14 138/74 98 09/03/19 14:10 91 17 133/75 95 09/03/19 14:06 90 14 99 09/03/19 14:00 85 15 124/72 97 Nasal Cannula 3 09/03/19 13:55 98.0 91 14 100/65 98 Nasal Cannula 3 Intake and Output 09/03/19 09/04/19 19:00 07:00 Intake Total 370 ml 330.000 ml Output Total 300 ml 700 ml Balance 70 ml -370.000 ml Intake Oral 120 ml IV Total 250 ml 330.000 ml Output Urine Total 300 ml 700 ml # Voids 2 3 # Bowel Movements 1 Laboratory Tests 09/04/19 03:56: White Blood Count 7.0, Red Blood Count 4.10L, Hemoglobin 11.2L, Hematocrit 32.9L , Mean Corpuscular Volume 80, Mean Corpuscular Hemoglobin 27.3, Mean Corpuscular Hemoglobin Concent 34.0, Red Cell Distribution Width 12.7, Platelet Count 387, Mean Platelet Volume 5.1L, Neutrophils (%) (Auto) 68.8, Lymphocytes ( %) (Auto) 22.2, Monocytes (%) (Auto) 7.4, Eosinophils (%) (Auto) 0.8, Basophils (%) (Auto) 0.8, Sodium Level 134L, Potassium Level 3.5, Chloride Level 100, Carbon Dioxide Level 31, Anion Gap 3L, Blood Urea Nitrogen 11, Creatinine 0.7, Estimat Glomerular Filtration Rate , Glucose Level 275H, Calcium Level 8.0L 09/04/19 04:00: Vancomycin Level Trough 9.9 Height (Feet): 5 Height (Inches): 9.00 Weight (Pounds): 130 General Appearance: lethargic EENT: normal ENT inspection Neck: normal alignment Cardiovascular: normal peripheral pulses, normal rate, regular rhythm Respiratory/Chest: chest wall non-tender, lungs clear, normal breath sounds Abdomen: normal bowel sounds, non tender, soft Extremities: normal inspection Edema: no edema noted Arm (L), no edema noted Arm (R), no edema noted Leg (L), no edema noted Leg (R), no edema noted Pedal (L), no edema noted Pedal (R), no edema noted Generalized Neurologic: motor weakness Skin: normal pigmentation, warm/dry Objective toe dressing c&d Greg Maurer DO Sep 04, 2019 13:34
--- NOTE | 2019-09-04 13:51 | Infectious Diseases Prog Note ---
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 Pt states that he felt fine and they brought him to the hospital because his blood pressure and sugar were high. Denies fever, chills, sweats, cough, sob, chest pain, sob, abdominal pain, dysuria, hematuria, diarrhea. He does report pain "a little" and "sometimes" in his feet. Per nurse, pt is refusing potassium and insulin. Pt states that he likes having his sugars high because he feels better. Afebrile No leukocytosis Hyperglycemia possibly 2/2 infection vs noncompliance Possibly UTI? does not appear to have come in with fontenot per charting UA WBC TNTC UCx: MRSA L 2nd toe cellulitis/gangrene SP amputation 09/03 Bacteremia? likely contaminant 09/01 BCx: staph epi 09/02 bcx: ngtd Unlikely PNA CXR negative MRSA screen negative DM Dyslipidemia CAD Plan: continue Ceftriaxone and vancomycin #4, flagyl #3...once pt ready for discharge , can switch to Augmentin 875 PO BID and Bactrim DS BID until 09/12 f/u repeat bcx f/u wound cx wound care per hospital protocol Thank you for this consult. [facility] will continue to follow the patient with you. Subjective Allergies: Coded Allergies: No Known Allergies (Unverified , 09/01/19) Subjective Afebrile. SP amputation yesterday No leukocytosis Reports some pain at surgery site Objective Vital Signs Last 24 Hour Vital Signs Date Time Temp Pulse Resp B/P (MAP) Pulse Ox O2 Delivery O2 Flow Rate FiO2 09/04/19 12:00 97.4 81 17 120/68 (85) 97 09/04/19 08:00 98.0 82 17 148/85 (106) 99 09/04/19 04:00 96.6 83 20 119/61 (80) 100 09/04/19 00:20 99.5 81 20 128/67 (87) 100 09/03/19 20:00 98.4 85 18 111/56 (74) 99 09/03/19 16:00 97.5 86 17 123/83 (96) 09/03/19 15:18 51 15 98 09/03/19 15:00 97.5 81 18 139/76 97 09/03/19 14:45 82 14 137/71 98 11/20/19 14:30 84 16 134/73 96 09/03/19 14:20 91 14 138/74 98 09/03/19 14:10 91 17 133/75 95 09/03/19 14:06 90 14 99 09/03/19 14:00 85 15 124/72 97 Nasal Cannula 3 09/03/19 13:55 98.0 91 14 100/65 98 Nasal Cannula 3 Height (Feet): 5 Height (Inches): 9.00 Weight (Pounds): 130 Objective Gen: NAD HEENT: anicteric sclera CV: RRR. no murmurs Resp: RRR. Soft. no TTP. no suprapubic pain Back: no flank pain Neuro: Alert. Interactive. Appropriate Psych: nonlabile. Ext: b/l feet wrapped Microbiology Date/Time Source Procedure Growth Status 09/02/19 15:30 Blood Blood Culture - Preliminary NO GROWTH AFTER 24 HOURS Resulted 09/02/19 15:15 Blood Blood Culture - Preliminary NO GROWTH AFTER 24 HOURS Resulted 09/01/19 16:35 Blood Blood Culture - Final Staphylococcus Epidermidis Complete 09/01/19 16:25 Blood Blood Culture - Preliminary NO GROWTH AFTER 48 HOURS Resulted 09/01/19 17:45 Nasal Nares MRSA Culture - Final NO METHICILLIN RESISTANT STAPH AUREUS... Complete 09/01/19 17:36 Urine,Clean Catch Urine Culture - Final Staphylococcus Aureus - Mrsa Complete 09/03/19 13:30 Toe Left Second Gram Stain - Final Resulted 09/03/19 13:30 Toe Left Second Aerobic Culture Pending Resulted 09/03/19 13:30 Toe Left Second Anaerobic Culture Pending Resulted 09/01/19 17:45 Rectum - Final NO CARBAPENEM-RESISTANT ENTEROBACTERI... Complete 09/01/19 17:45 Rectum VRE Culture - Final NO VANCOMYCIN RESISTANT ENTEROCOCCUS ... Complete Laboratory Tests Test 09/04/19 03:56 09/04/19 04:00 White Blood Count 7.0 K/UL (4.8-10.8) Red Blood Count 4.10 M/UL (4.70-6.10) L Hemoglobin 11.2 G/DL (14.2-18.0) L Hematocrit 32.9 % (42.0-52.0) L Mean Corpuscular Volume 80 FL (80-99) Mean Corpuscular Hemoglobin 27.3 PG (27.0-31.0) Mean Corpuscular Hemoglobin Concent 34.0 G/DL (32.0-36.0) Red Cell Distribution Width 12.7 % (11.6-14.8) Platelet Count 387 K/UL (150-450) Mean Platelet Volume 5.1 FL (6.5-10.1) L Neutrophils (%) (Auto) 68.8 % (45.0-75.0) Lymphocytes (%) (Auto) 22.2 % (20.0-45.0) Monocytes (%) (Auto) 7.4 % (1.0-10.0) Eosinophils (%) (Auto) 0.8 % (0.0-3.0) Basophils (%) (Auto) 0.8 % (0.0-2.0) Sodium Level 134 MMOL/L (136-145) L Potassium Level 3.5 MMOL/L (3.5-5.1) Chloride Level 100 MMOL/L (98-107) Carbon Dioxide Level 31 MMOL/L (21-32) Anion Gap 3 mmol/L (5-15) L Blood Urea Nitrogen 11 mg/dL (7-18) Creatinine 0.7 MG/DL (0.55-1.30) Estimat Glomerular Filtration Rate mL/min (>60) Glucose Level 275 MG/DL (74-106) H Calcium Level 8.0 MG/DL (8.5-10.1) L Vancomycin Level Trough 9.9 ug/mL (5.0-12.0) Current Medications Medications (Trade) Dose Ordered Sig/Indigo Route PRN Reason Start Time Stop Time Status Last Admin Dose Admin Acetaminophen (Tylenol) 650 mg Q4H PRN ORAL Mild Pain (Pain Scale 1-3) 09/01/19 17:45 10/01/19 17:44 Aspirin (Ecotrin) 81 mg DAILY ORAL 09/02/19 09:00 10/02/19 08:59 09/04/19 09:14 Atorvastatin Calcium (Lipitor) 40 mg BEDTIME ORAL 09/01/19 21:00 10/01/19 20:59 09/03/19 21:14 Ceftriaxone Sodium 1 gm/ Sodium Chloride 55 ml @ 110 mls/hr Q24H IVPB 09/03/19 18:30 09/09/19 18:29 09/03/19 19:06 Clopidogrel Bisulfate (Plavix) 75 mg DAILY ORAL 09/02/19 09:00 10/02/19 08:59 09/04/19 09:15 Dextrose (Dextrose 50%) 25 ml Q30M PRN IV Hypoglycemia 09/01/19 18:00 10/01/19 17:59 Dextrose (Dextrose 50%) 50 ml Q30M PRN IV Hypoglycemia 09/01/19 18:00 10/01/19 17:59 Enoxaparin Sodium (Lovenox) 40 mg Q24H SUBQ 09/01/19 20:00 10/01/19 19:59 09/03/19 21:15 Famotidine (Pepcid) 40 mg DAILY ORAL 09/02/19 09:00 10/02/19 08:59 09/04/19 09:15 Insulin Aspart (NovoLOG) BEFORE MEALS AND HS SUBQ 09/01/19 21:00 10/01/19 20:59 09/04/19 12:15 Insulin Detemir (Levemir) 12 units Q24H SUBQ 09/01/19 21:00 10/01/19 20:59 09/03/19 21:17 Metformin HCl (Glucophage) 850 mg TIAC ORAL 09/02/19 06:30 10/02/19 06:29 09/04/19 12:14 Metronidazole (Flagyl) 500 mg Q8HR ORAL 09/02/19 22:00 09/09/19 21:59 09/04/19 05:48 Ondansetron HCl (Zofran) 4 mg Q6H PRN IVP Nausea & Vomiting 09/01/19 17:45 10/01/19 17:44 Vancomycin HCl (Vanco rx to dose) 1 ea DAILY PRN MISC . 09/02/19 15:00 10/02/19 14:59 Vancomycin HCl 1 gm/Sodium Chloride 275 ml @ 183.708 mls/hr Q8H IVPB 09/04/19 05:00 09/09/19 04:59 09/04/19 13:13 Erick Chirinos MD Sep 04, 2019 13:51
--- NOTE | 2019-09-04 15:03 | Podiatric Progress Note ---
Assessment/Plan Patient Moses Ybarra is a 74 year old male who was admitted on Sep 01, 2019 at 17:25 with Assessment/Plan A/ 1) Cellulitis left 2nd toe 2) Gangrene left 2nd toe 3) DM foot ulcer 4) DM with neuropathy 5) Uncontrolled DM 6) Noncompliant 7) Healed toe amps left hallux and right 1st and 2nd toes P/ 1) POD #1 s/p left 2nd toe amputation - doing well. Photo documented today. Dressings changed 2) Clear for discharge 3) Appreciate ID recs 4) D/W PMD, recommend SNF placement for post op management. 5) Will follow Subjective Allergies: Coded Allergies: No Known Allergies (Unverified , 09/01/19) Subjective Patient resting comfortably. No pain. Nursing states he has not walked on foot. Objective Exam Last 24 Hour Vital Signs Date Time Temp Pulse Resp B/P (MAP) Pulse Ox O2 Delivery O2 Flow Rate FiO2 09/04/19 12:00 97.4 81 17 120/68 (85) 97 09/04/19 08:00 98.0 82 17 148/85 (106) 99 09/04/19 04:00 96.6 83 20 119/61 (80) 100 09/04/19 00:20 99.5 81 20 128/67 (87) 100 09/03/19 20:00 98.4 85 18 111/56 (74) 99 09/03/19 16:00 97.5 86 17 123/83 (96) 09/03/19 15:18 51 15 98 Laboratory Tests Test 09/04/19 03:56 09/04/19 04:00 White Blood Count 7.0 K/UL (4.8-10.8) Red Blood Count 4.10 M/UL (4.70-6.10) L Hemoglobin 11.2 G/DL (14.2-18.0) L Hematocrit 32.9 % (42.0-52.0) L Mean Corpuscular Volume 80 FL (80-99) Mean Corpuscular Hemoglobin 27.3 PG (27.0-31.0) Mean Corpuscular Hemoglobin Concent 34.0 G/DL (32.0-36.0) Red Cell Distribution Width 12.7 % (11.6-14.8) Platelet Count 387 K/UL (150-450) Mean Platelet Volume 5.1 FL (6.5-10.1) L Neutrophils (%) (Auto) 68.8 % (45.0-75.0) Lymphocytes (%) (Auto) 22.2 % (20.0-45.0) Monocytes (%) (Auto) 7.4 % (1.0-10.0) Eosinophils (%) (Auto) 0.8 % (0.0-3.0) Basophils (%) (Auto) 0.8 % (0.0-2.0) Sodium Level 134 MMOL/L (136-145) L Potassium Level 3.5 MMOL/L (3.5-5.1) Chloride Level 100 MMOL/L (98-107) Carbon Dioxide Level 31 MMOL/L (21-32) Anion Gap 3 mmol/L (5-15) L Blood Urea Nitrogen 11 mg/dL (7-18) Creatinine 0.7 MG/DL (0.55-1.30) Estimat Glomerular Filtration Rate mL/min (>60) Glucose Level 275 MG/DL (74-106) H Calcium Level 8.0 MG/DL (8.5-10.1) L Vancomycin Level Trough 9.9 ug/mL (5.0-12.0) Microbiology Date/Time Source Procedure Growth Status 09/02/19 15:30 Blood Blood Culture - Preliminary NO GROWTH AFTER 24 HOURS Resulted 09/01/19 17:45 Nasal Nares MRSA Culture - Final NO METHICILLIN RESISTANT STAPH AUREUS... Complete 09/01/19 17:36 Urine,Clean Catch Urine Culture - Final Staphylococcus Aureus - Mrsa Complete 09/03/19 13:30 Toe Left Second Gram Stain - Final Resulted 09/03/19 13:30 Toe Left Second Aerobic Culture Pending Resulted 09/03/19 13:30 Toe Left Second Anaerobic Culture Pending Resulted Dermatological Dermatological Narrative left foot incision is well coapted. No signs of infection. No drainage or bleeding. Sutures intact Dc Manzo DPM Sep 04, 2019 15:03
--- NOTE | 2019-09-04 15:29 | 48 Hour Post Anesthesia Eval ---
Post Anesthesia Evaluation Procedure: left 2nd toe amputation Date of Evaluation: Sep 04, 2019 Time of Evaluation: 15:28 Blood Pressure Systolic: 128 0: 76 Pulse Rate: 68 Respiratory Rate: 20 Temperature (Fahrenheit): 97.6 O2 Sat by Pulse Oximetry: 98 Airway: patent Nausea: No Vomiting: No Pain Intensity: 2 Hydration Status: adequate Cardiopulmonary Status: stable Mental Status/LOC: patient returned to baseline Follow-up Care/Observations: n/a Post-Anesthesia Complications: none Follow-up care needed: N/A Gerson Butts MD Sep 04, 2019 15:29
--- NOTE | 2019-09-04 17:50 | Surgery Progress Note ---
Surgery Progress Note Subjective Additional Comments doing well instructed not to walk on amputation site but seen walking around to bathroom no n/v/f/c Objective Last 24 Hour Vital Signs Date Time Temp Pulse Resp B/P (MAP) Pulse Ox O2 Delivery O2 Flow Rate FiO2 09/04/19 15:29 68 20 98 09/04/19 12:00 97.4 81 17 120/68 (85) 97 09/04/19 08:00 98.0 82 17 148/85 (106) 99 09/04/19 04:00 96.6 83 20 119/61 (80) 100 09/04/19 00:20 99.5 81 20 128/67 (87) 100 09/03/19 20:00 98.4 85 18 111/56 (74) 99 I&O Intake and Output 09/03/19 09/04/19 19:00 07:00 Intake Total 370 ml 330.000 ml Output Total 300 ml 700 ml Balance 70 ml -370.000 ml Intake Oral 120 ml IV Total 250 ml 330.000 ml Output Urine Total 300 ml 700 ml # Voids 2 3 # Bowel Movements 1 Dressing: saturated Wound: other Drains: other Cardiovascular: RSR Respiratory: clear, decreased breath sounds Abdomen: soft, present bowel sounds Extremities: pulses, other Laboratory Tests Test 09/04/19 03:56 09/04/19 04:00 White Blood Count 7.0 K/UL (4.8-10.8) Red Blood Count 4.10 M/UL (4.70-6.10) L Hemoglobin 11.2 G/DL (14.2-18.0) L Hematocrit 32.9 % (42.0-52.0) L Mean Corpuscular Volume 80 FL (80-99) Mean Corpuscular Hemoglobin 27.3 PG (27.0-31.0) Mean Corpuscular Hemoglobin Concent 34.0 G/DL (32.0-36.0) Red Cell Distribution Width 12.7 % (11.6-14.8) Platelet Count 387 K/UL (150-450) Mean Platelet Volume 5.1 FL (6.5-10.1) L Neutrophils (%) (Auto) 68.8 % (45.0-75.0) Lymphocytes (%) (Auto) 22.2 % (20.0-45.0) Monocytes (%) (Auto) 7.4 % (1.0-10.0) Eosinophils (%) (Auto) 0.8 % (0.0-3.0) Basophils (%) (Auto) 0.8 % (0.0-2.0) Sodium Level 134 MMOL/L (136-145) L Potassium Level 3.5 MMOL/L (3.5-5.1) Chloride Level 100 MMOL/L (98-107) Carbon Dioxide Level 31 MMOL/L (21-32) Anion Gap 3 mmol/L (5-15) L Blood Urea Nitrogen 11 mg/dL (7-18) Creatinine 0.7 MG/DL (0.55-1.30) Estimat Glomerular Filtration Rate mL/min (>60) Glucose Level 275 MG/DL (74-106) H Calcium Level 8.0 MG/DL (8.5-10.1) L Vancomycin Level Trough 9.9 ug/mL (5.0-12.0) Plan Problems: (1) Wound abscess (2) Cellulitis of left foot Assessment & Plan: 74M hx DM non compliance prior ray amputations now with left 2nd and 3rd ray infection gangrene, exposed bone labs noted on ABX good DP pulse b/l s/p amputation by podiatry d/c planning stable comfortable local wound care Abx as per ID will follow with recs. 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
[2019-09-04] MEDS: cefTRIAXone 1 GM in NS 55 ML IVPB SCH (18:39)
[2019-09-04 20:00] VITALS: BP 137/77
[2019-09-04] MEDS: Atorvastatin 80mg tab ORAL SCH (20:34)
[2019-09-04] MEDS: Levemir Flexpen SUBQ SCH (20:36)
[2019-09-04] MEDS: Enoxaparin 40mg Inj SUBQ SCH (20:36)
[2019-09-05] VITALS: BP 115/57
[2019-09-05 04:00] VITALS: BP 135/72
[2019-09-05 04:57] LABS: BASOPHILS % (AUTO) 0.6 % (0.0-2.0); EOSINOPHILS % (AUTO) 1.3 % (0.0-3.0); HEMATOCRIT 31.5 % (42.0-52.0); LYMPHOCYTES % (AUTO) 22.6 % (20.0-45.0); MEAN CORPUSCULAR VOLUME 79 FL (80-99); MONOCYTES % (AUTO) 7.9 % (1.0-10.0); NEUTROPHILS % (AUTO) 67.5 % (45.0-75.0); PLATELET COUNT 402 K/UL (150-450); RED BLOOD COUNT 3.97 M/UL (4.70-6.10); RED CELL DISTRIBUTION WIDTH 12.8 % (11.6-14.8); WHITE BLOOD COUNT 7.6 K/UL (4.8-10.8)
[2019-09-05 05:15] LABS: ANION GAP 1 mmol/L (5-15); BLOOD UREA NITROGEN 10 mg/dL (7-18); CALCIUM 8.4 MG/DL (8.5-10.1); CARBON DIOXIDE 34 MMOL/L (21-32); CHLORIDE 103 MMOL/L (98-107); CREATININE 0.8 MG/DL (0.55-1.30); POTASSIUM 3.1 MMOL/L (3.5-5.1); SODIUM 138 MMOL/L (136-145)
[2019-09-05] MEDS: Vancomycin 1 GM in NS 275 ML IVPB SCH ×2 (06:11→13:42)
[2019-09-05] MEDS: metroNIDAZOLE 500mg tab ORAL SCH (06:11)
[2019-09-05] MEDS: NovoLOG Insulin Flexpen SUBQ SCH ×2 (06:28→12:12)
--- NOTE | 2019-09-05 07:31 | Discharge Instructions ---
Discharge Instructions Discharge Instructions Services at Discharge: day care Diet: 2 GM sodium (low sodium), diabetic calorie control Resume Normal Activity?: No Activity: other Follow Up Orders Complete antibiotic therapy as delineated by ID For Congestive Heart Failure Reminder Report to your physician any weight gain of 5 pounds or more in one week. Walt Laws MD Sep 05, 2019 07:31
[2019-09-05 08:00] VITALS: BP 124/69
--- NOTE | 2019-09-05 09:19 | General Progress Note ---
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 ICD Codes: E11.621 - Type 2 diabetes mellitus with foot ulcer; L97.524 - Non- pressure chronic ulcer of other part of left foot with necrosis of bone SNOMED: 46583554, 842865632, 213312513, 253520393, 381901511 (7) Gangrene of toe of left foot ICD Codes: I96 - Gangrene, not elsewhere classified SNOMED: 25978565415334681 Status: stable, progressing Assessment/Plan: pt diet abx pain control wound care cbc bmp am Subjective Constitutional: Reports: weakness Allergies: Coded Allergies: No Known Allergies (Unverified , 09/01/19) All Systems: reviewed and negative except above Subjective sitting on bed calm Objective Last 24 Hour Vital Signs Date Time Temp Pulse Resp B/P (MAP) Pulse Ox O2 Delivery O2 Flow Rate FiO2 09/05/19 08:00 97.7 85 19 124/69 (87) 96 09/05/19 04:00 97.9 85 18 135/72 (93) 96 09/05/19 00:00 97.3 96 18 115/57 (76) 99 09/04/19 20:00 98.2 82 18 137/77 (97) 98 09/04/19 15:29 68 20 98 09/04/19 12:00 97.4 81 17 120/68 (85) 97 Intake and Output 09/04/19 09/05/19 19:00 07:00 Intake Total 1000 ml 330.000 ml Balance 1000 ml 330.000 ml IV Total 330.000 ml Other 1000 ml Laboratory Tests 09/05/19 04:12: White Blood Count 7.6, Red Blood Count 3.97L, Hemoglobin 11.0L, Hematocrit 31.5L , Mean Corpuscular Volume 79L, Mean Corpuscular Hemoglobin 27.7, Mean Corpuscular Hemoglobin Concent 34.9, Red Cell Distribution Width 12.8, Platelet Count 402, Mean Platelet Volume 5.4L, Neutrophils (%) (Auto) 67.5, Lymphocytes ( %) (Auto) 22.6, Monocytes (%) (Auto) 7.9, Eosinophils (%) (Auto) 1.3, Basophils (%) (Auto) 0.6, Sodium Level 138, Potassium Level 3.1L, Chloride Level 103, Carbon Dioxide Level 34H, Anion Gap 1L, Blood Urea Nitrogen 10, Creatinine 0.8, Estimat Glomerular Filtration Rate , Glucose Level 67#L, Calcium Level 8.4L, Vancomycin Level Trough 18.1H Height (Feet): 5 Height (Inches): 9.00 Weight (Pounds): 130 General Appearance: lethargic EENT: normal ENT inspection Neck: normal alignment Cardiovascular: normal peripheral pulses, normal rate, regular rhythm Respiratory/Chest: chest wall non-tender, lungs clear, normal breath sounds Abdomen: normal bowel sounds, non tender, soft Extremities: normal inspection Edema: no edema noted Arm (L), no edema noted Arm (R), no edema noted Leg (L), no edema noted Leg (R), no edema noted Pedal (L), no edema noted Pedal (R), no edema noted Generalized Neurologic: motor weakness Skin: normal pigmentation, warm/dry Objective toe dressing c&Greg Reid DO Sep 05, 2019 09:19
[2019-09-05] MEDS: Aspirin EC 81mg tab ORAL SCH (09:41)
[2019-09-05] MEDS ORDERED: AUGMENTIN 875-1 EAC1 ORAL (11:16)
[2019-09-05] MEDS ORDERED: BACTRIM-DS1 EA ORAL (11:17)
--- NOTE | 2019-09-05 11:25 | Infectious Diseases Prog Note ---
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 Pt states that he felt fine and they brought him to the hospital because his blood pressure and sugar were high. Denies fever, chills, sweats, cough, sob, chest pain, sob, abdominal pain, dysuria, hematuria, diarrhea. He does report pain "a little" and "sometimes" in his feet. Per nurse, pt is refusing potassium and insulin. Pt states that he likes having his sugars high because he feels better. Afebrile No leukocytosis Hyperglycemia possibly 2/2 infection vs noncompliance Possibly UTI? does not appear to have come in with fontenot per charting UA WBC TNTC UCx: MRSA L 2nd toe cellulitis/gangrene SP amputation 09/03 wound cx: SA, CoNS, Strep Bacteremia? likely contaminant 09/01 BCx: staph epi 09/02 bcx: ngtd Unlikely PNA CXR negative MRSA screen negative DM Dyslipidemia CAD Plan: continue Ceftriaxone and vancomycin #5, flagyl #4 while inpatient...once pt ready for discharge, can switch to Augmentin 875 PO BID and Bactrim DS BID until 09/12 f/u repeat bcx f/u wound cx wound care per hospital protocol Thank you for this consult. [facility] will continue to follow the patient with you. Subjective Allergies: Coded Allergies: No Known Allergies (Unverified , 09/01/19) Subjective Afebrile. No leukocytosis Slight pain Soft, nonwatery bowel movement Objective Vital Signs Last 24 Hour Vital Signs Date Time Temp Pulse Resp B/P (MAP) Pulse Ox O2 Delivery O2 Flow Rate FiO2 09/05/19 08:00 97.7 85 19 124/69 (87) 96 09/05/19 04:00 97.9 85 18 135/72 (93) 96 09/05/19 00:00 97.3 96 18 115/57 (76) 99 09/04/19 20:00 98.2 82 18 137/77 (97) 98 09/04/19 15:29 68 20 98 09/04/19 12:00 97.4 81 17 120/68 (85) 97 Height (Feet): 5 Height (Inches): 9.00 Weight (Pounds): 130 Objective Gen: NAD HEENT: anicteric sclera CV: RRR. no murmurs Resp: RRR. Soft. no TTP. no suprapubic pain Back: no flank pain Neuro: Alert. Interactive. Appropriate Psych: nonlabile. Ext: b/l feet wrapped Microbiology Date/Time Source Procedure Growth Status 09/02/19 15:30 Blood Blood Culture - Preliminary NO GROWTH AFTER 48 HOURS Resulted 09/02/19 15:15 Blood Blood Culture - Preliminary NO GROWTH AFTER 48 HOURS Resulted 09/03/19 13:30 Toe Left Second Gram Stain - Final Resulted 09/03/19 13:30 Aerobic Culture - Preliminary Staphylococcus Aureus Strep Species, Beta Hemolytic Staphylococcus Sp Coag Neg Resulted 09/03/19 13:30 Toe Left Second Anaerobic Culture Pending Resulted Laboratory Tests Test 09/05/19 04:12 White Blood Count 7.6 K/UL (4.8-10.8) Red Blood Count 3.97 M/UL (4.70-6.10) L Hemoglobin 11.0 G/DL (14.2-18.0) L Hematocrit 31.5 % (42.0-52.0) L Mean Corpuscular Volume 79 FL (80-99) L Mean Corpuscular Hemoglobin 27.7 PG (27.0-31.0) Mean Corpuscular Hemoglobin Concent 34.9 G/DL (32.0-36.0) Red Cell Distribution Width 12.8 % (11.6-14.8) Platelet Count 402 K/UL (150-450) Mean Platelet Volume 5.4 FL (6.5-10.1) L Neutrophils (%) (Auto) 67.5 % (45.0-75.0) Lymphocytes (%) (Auto) 22.6 % (20.0-45.0) Monocytes (%) (Auto) 7.9 % (1.0-10.0) Eosinophils (%) (Auto) 1.3 % (0.0-3.0) Basophils (%) (Auto) 0.6 % (0.0-2.0) Sodium Level 138 MMOL/L (136-145) Potassium Level 3.1 MMOL/L (3.5-5.1) L Chloride Level 103 MMOL/L (98-107) Carbon Dioxide Level 34 MMOL/L (21-32) H Anion Gap 1 mmol/L (5-15) L Blood Urea Nitrogen 10 mg/dL (7-18) Creatinine 0.8 MG/DL (0.55-1.30) Estimat Glomerular Filtration Rate mL/min (>60) Glucose Level 67 MG/DL (74-106) #L Calcium Level 8.4 MG/DL (8.5-10.1) L Vancomycin Level Trough 18.1 ug/mL (5.0-12.0) H Current Medications Medications (Trade) Dose Ordered Sig/Indigo Route PRN Reason Start Time Stop Time Status Last Admin Dose Admin Acetaminophen (Tylenol) 650 mg Q4H PRN ORAL Mild Pain (Pain Scale 1-3) 09/01/19 17:45 10/01/19 17:44 Aspirin (Ecotrin) 81 mg DAILY ORAL 09/02/19 09:00 10/02/19 08:59 09/05/19 09:41 Atorvastatin Calcium (Lipitor) 40 mg BEDTIME ORAL 09/01/19 21:00 10/01/19 20:59 09/04/19 20:34 Ceftriaxone Sodium 1 gm/ Sodium Chloride 55 ml @ 110 mls/hr Q24H IVPB 09/03/19 18:30 09/09/19 18:29 09/04/19 18:39 Clopidogrel Bisulfate (Plavix) 75 mg DAILY ORAL 09/02/19 09:00 10/02/19 08:59 09/05/19 09:41 Dextrose (Dextrose 50%) 25 ml Q30M PRN IV Hypoglycemia 09/01/19 18:00 10/01/19 17:59 Dextrose (Dextrose 50%) 50 ml Q30M PRN IV Hypoglycemia 09/01/19 18:00 10/01/19 17:59 Enoxaparin Sodium (Lovenox) 40 mg Q24H SUBQ 09/01/19 20:00 10/01/19 19:59 09/04/19 20:36 Famotidine (Pepcid) 40 mg DAILY ORAL 09/02/19 09:00 10/02/19 08:59 09/05/19 09:41 Insulin Aspart (NovoLOG) BEFORE MEALS AND HS SUBQ 09/01/19 21:00 10/01/19 20:59 09/04/19 20:35 Insulin Detemir (Levemir) 12 units Q24H SUBQ 09/01/19 21:00 10/01/19 20:59 09/04/19 20:36 Metformin HCl (Glucophage) 850 mg TIAC ORAL 09/02/19 06:30 10/02/19 06:29 09/04/19 17:43 Metronidazole (Flagyl) 500 mg Q8HR ORAL 09/02/19 22:00 09/09/19 21:59 09/05/19 06:11 Ondansetron HCl (Zofran) 4 mg Q6H PRN IVP Nausea & Vomiting 09/01/19 17:45 10/01/19 17:44 Vancomycin HCl (Vanco rx to dose) 1 ea DAILY PRN MISC . 09/02/19 15:00 10/02/19 14:59 Vancomycin HCl 1 gm/Sodium Chloride 275 ml @ 183.708 mls/hr Q8H IVPB 09/04/19 05:00 09/09/19 04:59 09/05/19 06:11 Erick Chirinos MD Sep 05, 2019 11:25
[2019-09-05 12:00] VITALS: BP 158/88
--- NOTE | 2019-09-05 15:34 | Surgery Progress Note ---
Surgery Progress Note Subjective Symptoms: improved, tolerating diet, passing flatus Objective Last 24 Hour Vital Signs Date Time Temp Pulse Resp B/P (MAP) Pulse Ox O2 Delivery O2 Flow Rate FiO2 09/05/19 12:00 97.0 89 18 158/88 (111) 100 09/05/19 08:00 97.7 85 19 124/69 (87) 96 09/05/19 04:00 97.9 85 18 135/72 (93) 96 09/05/19 00:00 97.3 96 18 115/57 (76) 99 09/04/19 20:00 98.2 82 18 137/77 (97) 98 I&O Intake and Output 09/04/19 09/05/19 19:00 07:00 Intake Total 1000 ml 330.000 ml Balance 1000 ml 330.000 ml IV Total 330.000 ml Other 1000 ml Dressing: saturated Wound: other Drains: other Cardiovascular: RSR Respiratory: clear, decreased breath sounds Abdomen: soft, non-tender, present bowel sounds Extremities: edema, no cyanosis, other Laboratory Tests Test 09/05/19 04:12 White Blood Count 7.6 K/UL (4.8-10.8) Red Blood Count 3.97 M/UL (4.70-6.10) L Hemoglobin 11.0 G/DL (14.2-18.0) L Hematocrit 31.5 % (42.0-52.0) L Mean Corpuscular Volume 79 FL (80-99) L Mean Corpuscular Hemoglobin 27.7 PG (27.0-31.0) Mean Corpuscular Hemoglobin Concent 34.9 G/DL (32.0-36.0) Red Cell Distribution Width 12.8 % (11.6-14.8) Platelet Count 402 K/UL (150-450) Mean Platelet Volume 5.4 FL (6.5-10.1) L Neutrophils (%) (Auto) 67.5 % (45.0-75.0) Lymphocytes (%) (Auto) 22.6 % (20.0-45.0) Monocytes (%) (Auto) 7.9 % (1.0-10.0) Eosinophils (%) (Auto) 1.3 % (0.0-3.0) Basophils (%) (Auto) 0.6 % (0.0-2.0) Sodium Level 138 MMOL/L (136-145) Potassium Level 3.1 MMOL/L (3.5-5.1) L Chloride Level 103 MMOL/L (98-107) Carbon Dioxide Level 34 MMOL/L (21-32) H Anion Gap 1 mmol/L (5-15) L Blood Urea Nitrogen 10 mg/dL (7-18) Creatinine 0.8 MG/DL (0.55-1.30) Estimat Glomerular Filtration Rate mL/min (>60) Glucose Level 67 MG/DL (74-106) #L Calcium Level 8.4 MG/DL (8.5-10.1) L Vancomycin Level Trough 18.1 ug/mL (5.0-12.0) H Plan Problems: (1) Wound abscess (2) Cellulitis of left foot Assessment & Plan: 74M hx DM non compliance prior ray amputations now with left 2nd and 3rd ray infection gangrene, exposed bone labs noted on ABX good DP pulse b/l s/p amputation by podiatry d/c planning stable comfortable local wound care Abx as per ID will follow with recs. 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
--- NOTE | 2019-09-07 11:21 | Discharge Summary ---
Discharge Summary Discharge Summary _ DATE OF ADMISSION: 09/01/2019 DATE OF DISCHARGE: 09/05/2019 DISCHARGED BY: Dr. Walt Laws CONSULTANTS: Dr. Simon Chirinos BRIEF HOSPITAL COURSE: Patient is a 74-year-old Thai-speaking male, who was brought in by door person due to difficult to control high glucose readings. He has medical history of diabetes mellitus, hyperlipidemia and coronary artery disease. Patient resides in a [facility] facility. On evaluation at ED, blood pressure was 92/66, pulse rate 105. Blood work did not show any leukocytosis. Hemoglobin 11, hematocrit 33. Glucose was elevated to 541. Electrolytes were normal. Urinalysis showed 2+ leukocyte esterase, 20- 30 urine RBC, too numerous to count urine WBC. EKG showed sinus rhythm with no acute changes. Chest x-ray did not show any acute process. Glucose was elevated, however patient did not appear to be in acidosis. He was given IV hydration. He was started empirically on antibiotics. He was then admitted for evaluation of hyperglycemia, dehydration and UTI. Blood glucose was monitored. He was continued on insulin sliding scale. He was given Lovenox for DVT prophylaxis. Surgeon was consulted. Patient has cellulitis of the left foot. Patient had prior amputation, second and third toe with infection, gangrene and exposed bone. He had good dorsalis pedis pulse bilateral. He was provided with local wound care. Retreader was consulted. Discussed necessity for amputation and possible spread of infection control seen for the risk of bleeding. Patient stated that the toe feels fine and not sure if he wants amputation. Patient was not compliant with medication and had been refusing insulin. ID was consulted. Patient blood culture showed gram-positive cocci in clusters. He was given ceftriaxone and vancomycin. Flagyl was added. Urine culture showed growth of MRSA. Left foot x-ray showed distal fibula fracture, acuity indeterminate. Soft tissue swelling of the second digit with evidence of distal soft tissue evaluation. Patient eventually consented for surgery. He was cleared for surgery. On 09/03/2019, he underwent left second toe amputation. He tolerated procedure well. Wound dressings were changed. Patient will need SNF placement for postop management. Patient was instructed not to walk with complications site but was seen walking to the bathroom. Hyperglycemia improved. Dehydration resolved. Repeat blood culture did not isolate any growth. Wound culture showed growth of staph aureus coagulase- negative, and strep. Patient was eventually discharged to a SNF. FINAL DIAGNOSES: Left second toe cellulitis and gangrene, status post amputation Hyperglycemia secondary to infection and noncompliance, resolved. 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 I have been assigned to complete a discharge summary on this account, I was not involved with the patient's management.--DUSTIN Landry Jacqueline Robles NP Sep 07, 2019 11:21
== END 2019-09-05 13:30 | DRG 256 ==
LOC: EMR 16:30 → 3E 17:25 → EDBEDREQ 18:02 → 4E 20:06
PROC: 0Y6S0Z0 Detachment at Left 2nd Toe, Complete, Open Approach (ICD-10-PCS; principal; 2019-09-03 14:30)
DX: E11.52 Type 2 diabetes mellitus with diabetic peripheral angiopathy with gangrene (principal); I96 Gangrene, not elsewhere classified; N39.0 Urinary tract infection, site not specified; L03.116 Cellulitis of left lower limb; E46 Unspecified protein-calorie malnutrition; Z68.1 Body mass index [BMI] 19.9 or less, adult; E11.65 Type 2 diabetes mellitus with hyperglycemia; E11.621 Type 2 diabetes mellitus with foot ulcer; L97.524 Non-pressure chronic ulcer of other part of left foot with necrosis of bone; E86.0 Dehydration; E78.5 Hyperlipidemia, unspecified; I25.10 Atherosclerotic heart disease of native coronary artery without angina pectoris; Z91.14 Patient's other noncompliance with medication regimen; E11.40 Type 2 diabetes mellitus with diabetic neuropathy, unspecified; S82.832A Other fracture of upper and lower end of left fibula, initial encounter for closed fracture; X58.XXXA Exposure to other specified factors, initial encounter; Z89.412 Acquired absence of left great toe; Z89.421 Acquired absence of other right toe(s); Z79.02 Long term (current) use of antithrombotics/antiplatelets
CPT/HCPCS: 36415; 71045; 80048; 80053; 80202; 81003; 82550; 82553; 82962; 83605; 83690; 83880; 84484; 85025; 85651; 86140; 87040; 87070; 87075; 87081; 87086; 87116; 87181; 87205; 93005; 93925; 93970; 94003; 94150; 96361; 96374; 99285; J1815; J2405; J8499; S5561